=== PATIENT | female | born 1960 | race Caucasian/White ===

== ENCOUNTER 2016-09-30 09:31 | Emergency (ER) | payer BC ==
[~2016-09-30] VITALS: Ht 170.2 cm; Wt 127.2 kg
[~2016-09-30 09:31] MED LIST: AMLO10TA2 PO; ASPI1TAB PO; BYDU1INJ SC; CHIL81CH2 PO; CHLO25TA PO; CINN500C9 PO; CORE6.25 PO; HYDR50TAB PO; LOSA50TA20 PO; METF10004 PO; METO25TAB PO; SPIR25TA2 PO; VERA1TAB11 PO
[2016-09-30] MEDS ORDERED: KETOROLAC 60 MG/2 ML VIAL (J1885) IM ONE (11:00)
[2016-09-30] MEDS ORDERED: methylPREDNISolone INJ 125 MG/2 ML VIAL (J2930) IM ONE (11:00)
[2016-09-30 11:40] VITALS: BP 189/79
[2016-09-30] MEDS ORDERED: ULTR50TA8 PO (11:40)
== END 2016-09-30 11:46 | disposition home or self-care (01) ==
LOC: M ED 09:31
DX: M54.32 Sciatica, left side (principal); I25.10 Atherosclerotic heart disease of native coronary artery without angina pectoris; E11.9 Type 2 diabetes mellitus without complications; I10 Essential (primary) hypertension
CPT/HCPCS: 96372; 99282; J1885; J2930

== ENCOUNTER → 2016-12-09 | Outpatient (REF) | payer BC ==
[~2016-12-09] MED LIST changes: +ULTR50TA8 PO
[2016-12-09 16:26] LABS: ALBUMIN 3.1 GM/DL (3.2-5.2); ALBUMIN/GLOBULIN RATIO 0.79 (1.00-1.93); BILIRUBIN,TOTAL 0.3 MG/DL (0.2-1.0); CALCIUM LEVEL 8.5 MG/DL (8.5-10.1); CREATININE FOR GFR 1.53 MG/DL (0.55-1.02); GLOMERULAR FILTRATION RATE 37.7 (>51); POTASSIUM SERUM 4.2 MEQ/L (3.5-5.1)
== END ==
LOC: M SFHCLACO 08:05
PROVIDERS: ATTEND Physician Assistant
DX: E11.65 Type 2 diabetes mellitus with hyperglycemia (principal); I10 Essential (primary) hypertension; Z68.41 Body mass index [BMI] 40.0-44.9, adult; E78.1 Pure hyperglyceridemia

== ENCOUNTER 2017-02-06 07:37 | Inpatient (IN) | payer BC ==
[2017-02-06] VITALS (7 sets, daily range): BP systolic 116–135; BP diastolic 71–86
[~2017-02-06] VITALS: Ht 170.2 cm; Wt 131.8 kg
[2017-02-06] MEDS ORDERED: NS 1,000 ML IV ONE (08:15)
[2017-02-06 08:35] LABS: BASO # 0.1 10^3/uL (0.0-0.2); BASO % 0.7 % (0.0-1.0); EOS # 0.2 10^3/uL (0.0-0.50); EOS % 1.3 % (0.0-3.0); IMMATURE GRANULOCYTE % 0.8 % (0-0); LYMPH # 1.5 10^3/uL (1.5-4.5); LYMPH % 12.2 % (24.0-44.0); MEAN CORPUSCULAR HEMOGLOBIN 28.8 pg (27.0-33.0); MEAN CORPUSCULAR HGB CONC 33.9 g/dl (32.0-36.5); MEAN CORPUSCULAR VOLUME 84.9 fl (80.0-96.0); MONO # 0.4 10^3/uL (0.0-0.8); MONO % 3.5 % (0.0-5.0); NEUTROPHILS # 9.7 10^3/uL (1.8-7.7); NEUTROPHILS % 81.5 % (36.0-66.0); PLATELET COUNT, AUTOMATED 300 10^3/uL (150-450); RED CELL DISTRIBUTION WIDTH 12.7 % (11.5-14.5); WHITE BLOOD COUNT 11.9 10^3/uL (4.0-10.0)
[2017-02-06] MEDS ORDERED: MORPHINE 4 MG/ML 1ML SYRINGE IV ONE ×2 (08:45→11:15)
[2017-02-06] MEDS ORDERED: ONDANSETRON 4MG/2ML VIAL (J2405) IV ONE (08:45)
[2017-02-06 08:55] LABS: INR 0.93
[2017-02-06] MEDS: LACTOBACILLUS ACIDOPHILUS CAP (BACID) PO SCH ×2 (09:00→20:21)
[2017-02-06] MEDS ORDERED: PRED20TA PO (09:02)
[2017-02-06] MEDS ORDERED: JANU100T PO (09:02)
[2017-02-06] MEDS ORDERED: ONDA4TAB6 PO (09:02)
[2017-02-06] MEDS ORDERED: TRAM50TA2 PO (09:02)
[2017-02-06] MEDS ORDERED: LOSA50TA20 PO (09:02)
[2017-02-06] MEDS ORDERED: CYCL10TA PO (09:02)
[2017-02-06 09:03] LABS: ALBUMIN 3.2 GM/DL (3.2-5.2); ALBUMIN/GLOBULIN RATIO 0.7 (1.00-1.93); BILIRUBIN,DIRECT 0.1 MG/DL (0.0-0.2); BILIRUBIN,TOTAL 0.4 MG/DL (0.2-1.0); CALCIUM LEVEL 9.7 MG/DL (8.5-10.1); CREATININE FOR GFR 1.79 MG/DL (0.55-1.02); GLOMERULAR FILTRATION RATE 31.4 (>51); POTASSIUM SERUM 4.8 MEQ/L (3.5-5.1); TOTAL PROTEIN 7.8 GM/DL (6.4-8.2)
[2017-02-06] MEDS ORDERED: HumuLIN R (REGULAR) INSULIN (NovoLIN R) **100U/ML** PER UNIT SC STA (09:06)
[2017-02-06] MEDS ORDERED: KETOROLAC 30 MG/ML VIAL (J1885) IV ONE (10:30)
[2017-02-06] MEDS ORDERED: NS 1,000 ML IV SCH (10:40)
[2017-02-06] MEDS ORDERED: NORCO, ANEXSIA 5/325MG TABLET (HYDROcodone/ACETAMINOPHEN) PO PRN (10:45)
[2017-02-06] MEDS ORDERED: GLUCOSE 4 GM CHEW TABLET PO PRN ×2 (10:45→17:15)
[2017-02-06] MEDS ORDERED: LEVEMIR (INSULIN DETEMIR) 1 UNITS/0.01ML SC ONE ×2 (10:45→21:00)
[2017-02-06] MEDS ORDERED: ONDANSETRON 4MG/2ML VIAL (J2405) IV PRN ×2 (10:45→16:30)
[2017-02-06] MEDS ORDERED: DEXTROSE 50% 50 ML SYRINGE IV PRN ×2 (10:45→17:15)
[2017-02-06] MEDS ORDERED: GLUCAGON FOR INJ 1 MG VIAL (J1610) SC PRN ×2 (10:45→17:15)
[2017-02-06] MEDS ORDERED: MORPHINE 4 MG/ML 1ML SYRINGE IV PRN (11:00)
[2017-02-06] MEDS ORDERED: cloNIDine 0.2 MG TAB PO ONE (11:00)
[2017-02-06] MEDS ORDERED: VERA24TASA PO (11:12)
[2017-02-06] MEDS ORDERED: hydrALAZINE INJ 20 MG/ML VIAL IV STA (11:14)
--- NOTE | 2017-02-06 11:21 | REP ---
CT ABDOMEN AND PELVIS WITHOUT IV CONTRAST: CT abdomen and pelvis performed without oral or IV contrast, with sagittal and coronal reconstruction images performed. Visualized lung bases demonstrate no evidence of acute infiltrate. The liver demonstrates diffuse low density likely indicating diffuse fatty infiltration. Patient has had a prior cholecystectomy. There is no evidence of significant biliary dilatation. The spleen, adrenals, pancreas, and right kidney are grossly unremarkable. The left kidney demonstrates moderate hydronephrosis. This is caused by a 3 mm calculus in the mid left ureter at the L5-S1 disc level. Two subcentimeter intrarenal calculi are seen in the left renal collecting system. There is no abdominal aortic aneurysm. There is no adenopathy. There is no free air or free fluid. There is no bowel wall thickening. There is no evidence of appendicitis. There is scattered diverticula of the colon without acute diverticulitis. There is no pelvic mass. No bladder calculus is seen. There are degenerative changes of the spine. IMPRESSION: Moderate left hydronephrosis is caused by 3 mm calculus in the mid left ureter at the L5-S1 disc level. There are also two intrarenal calculi in the lower pole of the left kidney. Signed by Gabino Sawyer MD 02/06/2017 05:35 P
--- NOTE | 2017-02-06 11:34 | ECGEPIP ---
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
[2017-02-06] MEDS: **hydrALAZINE** 10 MG TAB PO SCH ×3 (11:39→20:00)
[2017-02-06] MEDS: HumaLOG INSULIN (NovoLOG) PER UNIT SC SCH ×2 (12:00→16:15)
[2017-02-06] MEDS: CIPROFLOXACIN 200 MG in APPROPRIATE DILUENT 1 EA IV SCH (12:56)
[2017-02-06] MEDS ORDERED: CONRAY-60 60% 50ML VIAL (Q9961) As Ordered ONE (12:59)
--- NOTE | 2017-02-06 13:34 | REP ---
CHEST, PORTABLE, SINGLE VIEW: There is no evidence of acute infiltrate. No pleural effusion is seen. The heart is normal in size. The mediastinal silhouette is unremarkable. The visualized osseous structures are intact. IMPRESSION: No acute pulmonary disease. Signed by Gabino Sawyer MD 02/06/2017 05:37 P
--- NOTE | 2017-02-06 13:44 | SMCUROLCON ---
Urology Consultation General Date of Consultation 02/06/17 Reason For Consultation This patient is seen for Hydronephrosis Left. History of Present Illness The patient is a [56]-year-old [female] with a past medical history for left ureter stone; left HUN; ARF on CRF; DM. NPO. Cystoscopy, left RPG, JJ. Full consultation dictated. Cipro. Medications Current Medications Current Medications Acetaminophen (Tylenol Tab) 650 mg Q4HP PRN PO MILD PAIN OR FEVER; Start 02/06 at 10:45; Stop 03/08/17 at 10:44 Acetaminophen/ Hydrocodone Bitart ([place], [place]nexsia 5/325) 1 tab Q4HP PRN PO MODERATE PAIN (PS 5-7); Start 02/06/17 at 10:45; Stop 02/13/17 at 10:44 Ciprofloxacin 200 mg/IV Miscellaneous Supplies 100 ml @ 100 mls/hr Q12H IV Last administered on 02/06/17 12:56; Start 02/06/17 at 12:00; Stop 02/13/17 at 11:59 Dextrose (Dextrose 50%) 25 ml ASDIRECTED PRN IV SEE LABEL COMMENTS; Start at 10:45; Stop 03/08/17 at 10:44 Glucagon (Glucagon) 1 mg ASDIRECTED PRN SC SEE LABEL COMMENTS; Start 02/06/17 at 10:45; Stop 03/08/17 at 10:44 Glucose (Glucose) 16 GM ASDIRECTED PRN PO SEE LABEL COMMENTS; Start 02/06/17 at 10:45; Stop 03/08/17 at 10:44 Home Med (Med Rec Complete!) ASDIRECTED XX ; Start 02/06/17 at 11:15; Stop at 11:27; Status DC Hydralazine HCl (Apresoline) 5 mg STAT STAT IV Last administered on 11:38; Start 02/06/17 at 11:14; Stop 02/06/17 at 11:28; Status DC Hydralazine HCl (Apresoline) 10 mg Q4H PO Last administered on 02/06/17 11:39 ; Start 02/06/17 at 12:00; Stop 03/08/17 at 11:59 Insulin Human Lispro (HumaLOG INSULIN) SEE PROTOCOL TABLE Q6H SC Last administered on 02/06/17 12:00; Start 02/06/17 at 12:00; Stop 03/08/17 at 11 :59 Insulin Human Regular (HumuLIN R INSULIN) 6 units STAT STAT SC Last administered on 02/06/17 09:06; Start 02/06/17 at 09:06; Stop 02/06/17 at 09 :07; Status DC Lactobacillus Acidophilus (Bacid) 1 ea BID PO ; Start 02/06/17 at 09:00; Stop 03/08/17 at 08:59 Morphine Sulfate (Morphine Sulfate Inj) 4 mg Q4HP PRN IV SEVERE PAIN; Start at 11:00; Stop 02/13/17 at 10:59 Ondansetron HCl (ZOFRAN INJection) 4 mg Q6HP PRN IV NAUSEA OR VOMITING; Start 02/06/17 at 10:45; Stop 03/08/17 at 10:44 Sodium Chloride 1,000 ml @ 100 mls/hr Q10H IV Last administered on 02/06/17 11:19; Start 02/06/17 at 10:40; Stop 02/07/17 at 06:39 Verapamil HCl (Isoptin-Sr, Calan Sr) 240 mg QHS PO ; Start 02/06/17 at 21:00; Stop 03/08/17 at 20:59 Allergies Allergies: Coded Allergies: Lisinopril (Verified Allergy, Severe, angioedema, 11/29/14) Bee Venom (Verified Allergy, Unknown, 02/06/17) Vital Signs/I&O Vital Signs Date Time Temp Pulse Resp B/P (MAP) Pulse Ox O2 Delivery O2 Flow Rate FiO2 02/06/17 12:56 97.5 78 18 95 Room Air 02/06/17 12:51 126/60 (82) I&O- Last 24 Hours up to 6 AM 02/07/17 05:59 Intake Total 1000 ml Balance 1000 ml Laboratory Data 24H Labs Laboratory Tests 2 02/06/17 08:23: Prothrombin Time 12.6, Prothromb Time International Ratio 0.93, Urine Appearance HAZY, Urine Color YELLOW, Urine pH 5.0, Urine Specific [place] 1.025 , Urine Protein NEGATIVE, Urine Glucose (UA) 3+H, Urine Ketones TRACEH, Urine Urobilinogen 0.2, Urine Bilirubin NEGATIVE, Urine Leukocyte Esterase NEGATIVE, Urine Blood 2+H, Urine Nitrite NEGATIVE, Urine WBC (Auto) 1, Urine RBC (Auto) 5H , Urine Hyaline Casts (Auto) 0, Urine Bacteria (Auto) 1+H, Urine Squamous Epithelial Cells 2, Urine Sperm (Auto) , Anion Gap 11, Glomerular Filtration Rate 31.4L, Calcium Level 9.7, Aspartate Amino Transf (AST/SGOT) 19, Alanine Aminotransferase (ALT/SGPT) 43, Alkaline Phosphatase 90, Total Bilirubin 0.4, Direct Bilirubin 0.1, Total Protein 7.8, Albumin 3.2, Albumin/Globulin Ratio 0.70L, Lipase 161 02/06/17 08:24: Urine Appearance CLEAR, Urine Color YELLOW, Urine pH 5.0, Urine Specific [place] 1.024, Urine Protein NEGATIVE, Urine Glucose (UA) 3+H, Urine Ketones TRACEH, Urine Urobilinogen 0.2, Urine Bilirubin NEGATIVE, Urine Leukocyte Esterase NEGATIVE, Urine Blood 2+H, Urine Nitrite NEGATIVE, Urine WBC (Auto) 2, Urine RBC (Auto) 7H, Urine Hyaline Casts (Auto) 0, Urine Bacteria (Auto) 1+H, Urine Squamous Epithelial Cells 1, Urine Sperm (Auto) , Immature Granulocyte % ( Auto) 0.8H, White Blood Count 11.9H, Red Blood Count 4.58, Hemoglobin 13.2, Hematocrit 38.9, Mean Corpuscular Volume 84.9, Mean Corpuscular Hemoglobin 28.8 , Mean Corpuscular Hemoglobin Concent 33.9, Red Cell Distribution Width 12.7, Platelet Count 300, Neutrophils (%) (Auto) 81.5H, Lymphocytes (%) (Auto) 12.2L, Monocytes (%) (Auto) 3.5, Eosinophils (%) (Auto) 1.3, Basophils (%) (Auto) 0.7, Neutrophils # (Auto) 9.7H, Lymphocytes # (Auto) 1.5, Monocytes # (Auto) 0.4, Eosinophils # (Auto) 0.2, Basophils # (Auto) 0.1, Immature Granulocyte # (Auto) 0.1H, Nucleated Red Blood Cells % (auto) 0.0, Urine Mucus (Auto) SMALL, Lactic Acid Level 4.6*H 02/06/17 11:00: Bedside Glucose (Misc Panel) 377H 02/06/17 12:09: Bedside Glucose (Misc Panel) 371H 02/06/17 12:31: Lactic Acid Followup at 4 Hours 3.4*H CBC/BMP Laboratory Tests 02/06/17 08:23 02/06/17 08:24 Red Blood Count 4.58, Mean Corpuscular Volume 84.9, Mean Corpuscular Hemoglobin 28.8, Mean Corpuscular Hemoglobin Concent 33.9, Red Cell Distribution Width 12.7 , Neutrophils (%) (Auto) 81.5 H, Lymphocytes (%) (Auto) 12.2 L, Monocytes (%) ( Auto) 3.5, Eosinophils (%) (Auto) 1.3, Basophils (%) (Auto) 0.7, Neutrophils # ( Auto) 9.7 H, Lymphocytes # (Auto) 1.5, Monocytes # (Auto) 0.4, Eosinophils # ( Auto) 0.2, Basophils # (Auto) 0.1 Microbiology Microbiology 02/06/17 Urine Culture, Received Pending ELISEO BERRY MD Feb 06, 2017 13:44
--- NOTE | 2017-02-06 14:22 | HPE ---
DATE OF ADMISSION: 02/06/2017 PRIMARY CARE PROVIDER: ROGELIO Bonilla UROLOGIST: Dr. Michael Ware CHIEF COMPLAINT: Left flank pain, feeling cold at home. HISTORY OF PRESENT ILLNESS: This is a 56-year-old female with a history of hypertension, diabetes, obstructive sleep apnea, multinodular goiter, multiple kidney stones, status post lithotripsy, supraventricular tachycardia (SVT), obstructive sleep apnea, pulmonary hypertension secondary to SAMANTHA with allergies to LISINOPRIL causing dyspnea. Presented to the emergency room with acute onset at 3:00 a.m. of left flank pain, described as sharp, no radiation, accompanied with some dysuria, urgency, and frequency, no fever documented but feeling cold and some chills. Yesterday, the patient felt that this was more of a gas-like pain, since she has had Thanksgiving turkey dinner, but that at 3:00 a.m. she had intractable nausea, prompting her to present to the emergency room due to vomiting, persistent pain, dysuria. She was found to have left hydronephrosis due to a kidney stone, systolic pressure was 190 on admission. Given IV morphine with improvement to 173. The patient was afebrile. White count of 11.9. The hospitalist service was asked to admit for left hydronephrosis secondary to obstructive kidney stone. Creatinine slightly elevated at 1.79 from baseline of 1.5. The patient was found to have uncontrolled type 2 diabetes with glucose of 420 as well, lactic acid of 4.6. PAST MEDICAL HISTORY: 1. Diabetes. 2. Hypertension. 3. Kidney stones. 4. Morbid obesity, Body Mass Index (BMI) of 45.5. 5. Pulmonary hypertension secondary to obstructive sleep apnea. 6. Multinodular goiter. 7. Metabolic syndrome. 8. SVT. 9. SAMANTHA. 10. Multiple kidney stones, status post lithotripsy. ALLERGIES: BEES, LISINOPRIL. HOME MEDICATIONS: - Coreg 6.25 mg twice a day - losartan 50 daily - verapamil 240 mg at night - chlorthalidone 25 mg in the morning - spironolactone 25 mg daily - aspirin 81 mg daily - metformin 1 gram twice a day No recreational drug use, alcohol or tobacco use. FAMILY HISTORY: Mother is 73 with type 2 diabetes. Father with prostate cancer, age 77. REVIEW OF SYSTEMS: 12-point system negative aside from positive findings in history of present illness. PHYSICAL EXAMINATION: Temperature 96.9, pulse 80, respiratory rate 18, blood pressure 173/73, on admission 193/89, 94% on room air. GENERAL: Awake, alert, oriented times three. Answering questions appropriately. Morbidly obese. No respiratory distress, cyanosis, pallor, icterus, or jaundice. Pupils are round, reactive. Extraocular muscles are intact. Normocephalic, atraumatic. Speaks in full sentences. No nasal flaring. No jugular venous distention (JVD), thyromegaly or cervical lymphadenopathy. LUNGS: Clear to auscultation. No wheezing, rales or rhonchi. HEART: S1, S2. Sinus rhythm. ABDOMEN: Soft, obese. Positive bowel sounds times four quadrants. Left flank with costovertebral angle tenderness. No rebound, guarding. No hepatosplenomegaly. EXTREMITIES: Chronic pitting edema with venous stasis ulcers in left lower extremity. LABORATORY DATA: White count 11.9, hemoglobin 13, hematocrit 38, platelet count 300. Sodium 134, potassium 4.9, chloride 101, bicarbonate 22, BUN 29, creatinine 1.7, glucose 420, lactic acid 4.6, calcium 9.7, total bilirubin 0.4, direct bilirubin 0.1, AST 19, ALT 43, alkaline phosphatase of 90, total protein is 7.8. CT of the abdomen and pelvis, left hydronephrosis, obstructing kidney stone. Lactic acid 4.6. EKG with sinus rhythm, ventricular rate of 82. No acute ST-T changes. ASSESSMENT AND PLAN: 56-year-old female with a history of diabetes, hypertension, hyperlipidemia, obstructive sleep apnea, pulmonary hypertension, metabolic syndrome, multinodular goiter, SVT, recurrent kidney stones, status post lithotripsy, presented to the emergency room with acute onset of left sided flank pain, dysuria, urgency, frequency without fever or chills, found to have slightly elevated white count, abnormal urinalysis. CT showing left hydronephrosis with kidney stone. CURRENT ISSUES: 1. Preoperative medical clearance. The patient is exhibiting no acute cardiac ischemic symptoms. EKG is unremarkable. The patient may proceed to cystoscopy and possible lithotripsy, stone extraction or stent placement. The patient's blood pressure will be optimized with hydralazine and clonidine for now. Since the patient's heart rate is slow, cannot resume the patient's Coreg. Due to acute on chronic renal failure, we are unable to use KAVITHA inhibitors and ARBs and diuretics. 2. Left hydronephrosis. Dr. Ware, urology, has been consulted for cystoscopy with possible lithotripsy, stone extraction, or stent placement. Nothing by mouth status with IV fluids. 3. Uncontrolled type 2 diabetes. The patient had been given Levemir. Continue with sliding scale insulin with coverage. Fingersticks every 4 hours. Hypoglycemic protocol. Resume home dose of insulin. The patient's metformin will be held due to renal failure with metabolic acidosis. 4. Uncontrolled hypertension due to severe pain. Morphine has been given with as needed Percocet with significant improvement from systolic pressure of 190 to 170. The patient will be given clonidine. Avoid KAVITHA inhibitor and ARB due to renal failure. Cannot use beta blockades due to heart rate of 60 to 70. Therefore, we will use direct vasodilators, hydralazine for now. May resume once creatinine is improved her home medications. 5. Dyslipidemia. Resume medications in the morning. 6. History of multinodular goiter. Check TSH in the morning. 7. History of SVT. Currently sinus rhythm. 8. SAMANTHA. Continue with home CPAP postoperatively. 9. Pulmonary hypertension secondary to severe SAMANTHA, continue with CPAP at night. 10. Morbid obesity, Body Mass Index (BMI) of 45.5, complicating acute issues. 11. Deep vein thrombosis (DVT) prophylaxis. Compression stockings.
[2017-02-06] MEDS ORDERED: fentaNYL 100 MCG/2 ML INJECTION (J3010) As Ordered ONE (15:29)
[2017-02-06] MEDS ORDERED: MIDAZOLAM INJ 2 MG/2 ML VIAL (J2250) As Ordered ONE (15:29)
[2017-02-06] MEDS ORDERED: LIDOCAINE 2% INJ 100 MG/5 ML SDV (FOR ANES.) As Ordered ONE (15:30)
[2017-02-06] MEDS ORDERED: PROPOFOL 200 MG/20 ML VIAL As Ordered ONE (15:30)
[2017-02-06] MEDS ORDERED: CIPROFLOXACIN 200 MG in APPROPRIATE DILUENT 1 EA IV ONE (15:45)
--- NOTE | 2017-02-06 15:51 | CR ---
DATE OF CONSULTATION: 02/06/2017 This 56-year-old female was evaluated and consultation is requested by Dr. Spann on 02/06/2017 for left renal colic. She had an acute onset of left renal colic at 0300 hours on 02/06/2017. This was subsequently followed by nausea and vomiting. She is a recurrent stone former (spontaneous passage, shockwave lithotripsy). Prior to her presentation, there is no history of voiding symptoms, gross hematuria, urinary tract infection, stone passage or constitutional symptoms. PAST MEDICAL HISTORY: Significant for: 1. Diabetes mellitus. 2. Hypertension. 3. Pulmonary hypertension. 4. Goiter. 5. Hypercholesterolemia. 6. Recurrent nephrolithiasis. 7. Supraventricular tachycardia. 8. Laparoscopic cholecystectomy. 9. Morbid obesity. REVIEW OF SYSTEMS: Negative for headaches, epilepsy, CVA, glaucoma, peptic ulcer disease, or blood borne diseases. CURRENT MEDICATIONS: Include: - verapamil - insulin - hydralazine - clonidine She is allergic to LISINOPRIL. SOCIAL HISTORY: She is and has one child. She is a nonsmoker. Does not consume alcohol. FAMILY HISTORY: Significant for chronic obstructive pulmonary disease (COPD) and prostate adenocarcinoma on the paternal side. Diabetes mellitus on the maternal side. Deep vein thrombosis (DVT) in siblings. PHYSICAL EXAMINATION: GENERAL: Revealed a comfortable individual. Her heart rate was 78, respiratory rate 18, blood pressure 141/67, temperature 97.5 degrees Fahrenheit. The patient's head and neck failed to reveal the presence of lymphadenopathy. Lungs clear to auscultation. Normal heart sounds. Examination of the back and abdomen were benign. She is morbidly obese. Urinalysis (02/06/2017) demonstrated 2+ microhematuria with a pH of 5.0. Nitrates and leukocytes were negative. Serum hematologic and biochemical indices determination (02/06/2017) demonstrated a hemoglobin of 13.2, leukocyte count of 11.9, creatinine of 1.8 (elevated), glucose of [address] and lactate of 4.6. CT of the abdomen and pelvis without intravenous contrast (02/06/2017) demonstrated a 3 mm left mid ureter calculus with proximal hydroureteronephrosis. ASSESSMENT: 1. Left mid ureter calculus. 2. Left hydroureteronephrosis. 3. Acute on chronic renal failure. 4. Poorly controlled diabetes mellitus. 5. Hypertension. 6. Pulmonary hypertension. 7. Goiter. 8. Hypercholesterolemia. 9. Supraventricular tachycardia. 10. Morbid obesity. 11. Recurrent nephrolithiasis. PLAN: The above findings were discussed with the patient, nursing staff and emergentologist. Given the size of the stone, conservative management is appropriate. However, given her acute on chronic renal failure, poorly controlled diabetes mellitus and GFR of 30, urinary diversion is appropriate. Following nothing by mouth status, cystoscopy, left retrograde ureteropyelography and double JJ stent insertion will be performed. Medical optimization to follow. Intravenous Ciprofloxacin 400 mg will be provided perioperatively. Should you require additional information, please do not hesitate to contact me. Thanking you for the confidence of your referral. Sincerely, Michael Ware MD
[2017-02-06] MEDS ORDERED: HumaLOG INSULIN (NovoLOG) PER UNIT As Ordered ONE (16:08)
[2017-02-06] MEDS ORDERED: LR 1,000 ML IV SCH (16:30)
[2017-02-06] MEDS ORDERED: PERCOCET 5MG/325MG TAB PO PRN (16:30)
[2017-02-06] MEDS ORDERED: fentaNYL 100 MCG/2 ML INJECTION (J3010) IV PRN (16:30)
[2017-02-06] MEDS: NS 1,000 ML IV SCH (17:15)
[2017-02-06] MEDS: ACETAMINOPHEN TAB 650MG DOSE (2X325MG) PO PRN (20:21)
[2017-02-06] MEDS: VERAPAMIL 120 MG SR TAB PO SCH (20:23)
[2017-02-07] MEDS: CIPROFLOXACIN 200 MG in APPROPRIATE DILUENT 1 EA IV SCH ×2 (00:54→12:46)
[2017-02-07 01:00] VITALS: BP 120/73
[2017-02-07] MEDS: NS 1,000 ML IV SCH ×3 (03:15→23:15)
[2017-02-07] MEDS: **hydrALAZINE** 10 MG TAB PO SCH ×6 (04:00→20:24)
[2017-02-07 06:00] VITALS: BP 148/83
--- NOTE | 2017-02-07 06:13 | RO ---
DATE OF PROCEDURE: 02/06/2017 PREOPERATIVE DIAGNOSIS: 1. Left mid ureter calculus. 2. Left hydroureteronephrosis. 3. Acute on chronic renal failure. POSTOPERATIVE DIAGNOSIS: 1. Left mid ureter calculus. 2. Left hydroureteronephrosis. 3. Acute on chronic renal failure. PROCEDURE: Cystoscopy. Left retrograde ureteropyelography. 6 [place] JJ-stent insertion. Fluoroscopy. SURGEON: Dr. Michael Ware SECURITY POLICE: ANESTHESIA: Monitored anesthesia care (MAC). COMPLICATIONS: None. ESTIMATED BLOOD LOSS: 0 mL. PROCEDURE: In lithotomy position, the patient was prepped and draped in the usual fashion. Plain fluoroscopy of the upper urinary tract failed to confirm the presence of a radiopaque calculus. A 22-[place] cystoscope was advanced into the urinary bladder under direct vision. A urine specimen for culture and sensitivity was obtained. Gonzalez cystoscopy revealed normal ureteric orifices bilaterally and normal urothelium. There was no evidence of tumor, active bleeding or urolithiasis. A normal bladder neck and urethra were noted. A 5 [place] open ended ureteral catheter was used to intubate the left ureteric orifice. Retrograde ureteropyelography confirmed a normal caliber ureter and mild proximal hydroureteronephrosis. No filling defects were appreciated. Under fluoroscopy, a 0.035 Glidewire was advanced up into the left renal pelvis. The 5 [place] open ended ureteral catheter was removed. A 6 [place] JJ-stent was advanced under fluoroscopy under direct vision. Its position was confirmed. Prior to removal of the instruments, the bladder was drained. At the conclusion of the procedure, sponge and instrument counts were correct. Estimated blood loss for the procedure was 0 mL. In the recovery room, the patient was alert and stable. DISPOSITION: Primary service to resume preoperative orders. Serial creatinines until nadi. Medical optimization. Following hospital discharge, she will followup with urology with a KUB radiograph.
--- NOTE | 2017-02-07 06:36 | REP ---
C-ARM VIEWS DURING LEFT RETROGRADE PYELOGRAM AND URETERAL STENT PLACEMENT: Contrast is injected into the left ureter which partially opacifies the ureter and left pelvicaliceal system. A left ureteral stent is placed with the proximal end coiled in the left renal pelvis and the distal end coiled in the region of the urinary bladder. 22 seconds of fluoroscopy time was utilized for the procedure. Signed by Gabino Sawyer MD 02/07/2017 09:06 A
[2017-02-07 06:48] LABS: BASO # 0.1 10^3/uL (0.0-0.2); BASO % 0.7 % (0.0-1.0); EOS # 0.3 10^3/uL (0.0-0.50); IMMATURE GRANULOCYTE % 0.8 % (0-0); LYMPH # 2.4 10^3/uL (1.5-4.5); LYMPH % 22.9 % (24.0-44.0); MEAN CORPUSCULAR HGB CONC 33.1 g/dl (32.0-36.5); MEAN CORPUSCULAR VOLUME 87.6 fl (80.0-96.0); MONO # 0.6 10^3/uL (0.0-0.8); MONO % 5.9 % (0.0-5.0); NEUTROPHILS # 6.9 10^3/uL (1.8-7.7); NEUTROPHILS % 66.7 % (36.0-66.0); PLATELET COUNT, AUTOMATED 241 10^3/uL (150-450); RED CELL DISTRIBUTION WIDTH 13.1 % (11.5-14.5); WHITE BLOOD COUNT 10.3 10^3/uL (4.0-10.0)
[2017-02-07 06:59] LABS: CALCIUM LEVEL 8.2 MG/DL (8.5-10.1); CREATININE FOR GFR 1.43 MG/DL (0.55-1.02); GLOMERULAR FILTRATION RATE 40.7 (>51); POTASSIUM SERUM 3.9 MEQ/L (3.5-5.1)
[2017-02-07] MEDS: HumaLOG INSULIN (NovoLOG) PER UNIT SC SCH ×3 (08:10→18:08)
[2017-02-07] MEDS: LACTOBACILLUS ACIDOPHILUS CAP (BACID) PO SCH ×2 (08:10→20:24)
[2017-02-07] MEDS: LEVEMIR (INSULIN DETEMIR) 1 UNITS/0.01ML SC SCH ×2 (08:17→20:22)
--- NOTE | 2017-02-07 09:39 | IPNPDOC ---
Assessment/Plan Date Seen The patient was seen on 02/07/17. Patient Summary This is a 56 y/o F admitted for NATHAN due to obstructing left ureteral stone in the setting of a possible UTI, POD1 s/p left ureteral stent placement. The patient feels much better today. Her Cr and lactic acid levels are both improving, but not normal yet. Plan/VTE VTE Prophylaxis Ordered?: Yes VTE Exclusion Mechanical Proph: N/A:VTE Prophy Ordered Plan - no additional urologic intervention needed at this time - continue empiric antibiotics for possible UTI - urology office will contact the patient to arrange f/u to discuss subsequent stone removal Subjective Review oF Systems Chief Complaint The patient is a 56-year-old female admitted with a reason for visit of Hydronephrosis Left. Events since Last Encounter No acute events o/n. Left flank pain much better today. No n/v. No f/c/ns. Objective Physical Examination General Exam: Alert, Cooperative, No Acute Distress ABDOMEN EXAM: Soft Skin Exam: Nl turgor and temperature Neuro Exam: Normal Speech Psych Exam: Mental status NL, Mood NL Vital Signs/I&O Vital Signs Date Time Temp Pulse Resp B/P (MAP) Pulse Ox O2 Delivery O2 Flow Rate FiO2 02/07/17 08:00 148/83 02/07/17 06:00 96.9 72 18 99 Nasal Cannula 2.0 I&O- Last 24 Hours up to 6 AM 02/08/17 06:00 Intake Total 900 ml Balance 900 ml Laboratory Data Labs 24H Laboratory Tests 2 02/06/17 11:00: Bedside Glucose (Misc Panel) 377H 02/06/17 12:09: Bedside Glucose (Misc Panel) 371H 02/06/17 12:31: Lactic Acid Followup at 4 Hours 3.4*H 02/06/17 16:06: Bedside Glucose (Misc Panel) 239H 02/06/17 16:53: Bedside Glucose (Misc Panel) 216H 02/06/17 17:56: Lactic Acid Level 2.6*H 02/06/17 19:39: Bedside Glucose (Misc Panel) 210H 02/06/17 23:29: Lactic Acid Followup at 4 Hours 1.7 02/07/17 06:20: Immature Granulocyte % (Auto) 0.8H, White Blood Count 10.3H, Red Blood Count 3.86L, Hemoglobin 11.2#L, Hematocrit 33.8L, Mean Corpuscular Volume 87.6, Mean Corpuscular Hemoglobin 29.0, Mean Corpuscular Hemoglobin Concent 33.1, Red Cell Distribution Width 13.1, Platelet Count 241, Neutrophils (%) (Auto) 66.7H, Lymphocytes (%) (Auto) 22.9L, Monocytes (%) (Auto) 5.9H, Eosinophils (%) (Auto) 3.0, Basophils (%) (Auto) 0.7, Neutrophils # (Auto) 6.9, Lymphocytes # (Auto) 2.4, Monocytes # (Auto) 0.6, Eosinophils # (Auto) 0.3, Basophils # (Auto) 0.1, Immature Granulocyte # (Auto) 0.1H, Nucleated Red Blood Cells % (auto) 0.0, Anion Gap 9, Glomerular Filtration Rate 40.7L, Blood Urea Nitrogen 32H, Creatinine 1.43H, Sodium Level 137, Potassium Level 3.9, Chloride Level 105, Carbon Dioxide Level 23, Calcium Level 8.2#L CBC/BMP Laboratory Tests 02/07/17 06:20 Red Blood Count 3.86 L, Mean Corpuscular Volume 87.6, Mean Corpuscular Hemoglobin 29.0, Mean Corpuscular Hemoglobin Concent 33.1, Red Cell Distribution Width 13.1, Neutrophils (%) (Auto) 66.7 H, Lymphocytes (%) (Auto) 22.9 L, Monocytes (%) (Auto) 5.9 H, Eosinophils (%) (Auto) 3.0, Basophils (%) ( Auto) 0.7, Neutrophils # (Auto) 6.9, Lymphocytes # (Auto) 2.4, Monocytes # (Auto ) 0.6, Eosinophils # (Auto) 0.3, Basophils # (Auto) 0.1, Calcium Level 8.2 #L FSBS Laboratory Tests Test 02/06/17 11:00 02/06/17 12:09 02/06/17 16:06 02/06/17 16:53 Range/Units Bedside Glucose (Misc Panel) 377 371 239 216 70-105 MG/DL Test 02/06/17 19:39 Range/Units Bedside Glucose (Misc Panel) 210 70-105 MG/DL Microbiology Microbiology 02/06/17 Urine Culture, Received Pending 02/06/17 Urine Culture, Received Pending RAUDEL SALTER MD Feb 07, 2017 09:39
[2017-02-07 10:00] VITALS: BP 150/86
--- NOTE | 2017-02-07 13:52 | IPN ---
DATE OF SERVICE: 02/07/2017 The patient continues to have some hematuria. No fever or chills. Flank pain is improved. Tolerating her diet well. No nausea or vomiting. Temperature 96.9, pulse 72, respiratory rate 18, blood pressure 153/87, 99% on 2 liters nasal cannula. Generally, the patient is awake, alert, oriented times three. Answering questions appropriately. Lungs are clear to auscultation. No wheezing, rales, or rhonchi. Heart: S1, S2. Sinus rhythm. Abdomen: Is soft, nontender, nondistended. Normoactive bowel sounds. Extremities: No cyanosis, clubbing. The patient has chronic edema with venous ulcers. LABORATORY DATA: White count 10.3, hemoglobin 11, hematocrit 33, platelet count 241. Sodium 137, potassium of 3.9, chloride 105, bicarbonate 23, BUN 32, creatinine 1.43, glucose 244, lactic acid of 1.7. Urine culture pending. ASSESSMENT AND PLAN: This is a 56-year-old female with history of recurrent nephrolithiasis status post lithotripsy, history of diabetes, hypertension, hyperlipidemia, obstructive sleep apnea (SAMANTHA), multinodular goiter, supraventricular tachycardia (SVT), kidney stones, pulmonary hypertension secondary to SAMANTHA, presented to the emergency room with left flank pain with no fever documented, white count of 11.9, and acute kidney injury secondary to obstructive kidney stone. CURRENT ISSUES: 1. Obstructive uropathy with left hydronephrosis, status post cystoscopy with left retrograde ureteropyelography and double J stent insertion. The patient is currently on intravenous (IV) antibiotics and intravenous fluids with some improvement in creatinine from 1.79 to 1.43. Appreciate urology's management of the patient's obstructive stone. The patient's white count is decreasing. She has remained afebrile. Lactic acid has normalized. If the patient continues to do well, may be discharged home in the morning. 2. Type 2 diabetes, uncontrolled. The patient had received subcutaneous Levemir 10 twice a day, as well as sliding scale, consistent-carbohydrate diet. Continue with the same. 3. Uncontrolled hypertension, currently improved with hydralazine. The patient had been resumed on verapamil. We have refrained from angiotensin-converting enzyme (KAVITHA) inhibitors and angiotensin receptor blockers (ARBs) due to acute on chronic renal failure. 4. Obstructive sleep apnea. May resume home continuous positive airway pressure (CPAP). 5. Morbid obesity. Body mass index (BMI) 45.5. Complicating acute issues. 6. History of multinodular goiter. Outpatient followup with repeat thyroid function test. 7. Metabolic syndrome, chronic. 8. History of supraventricular tachycardia. Currently stable. 9. Deep vein thrombosis (DVT) prophylaxis with compression stockings. DISPOSITION: Possible discharge in the morning.
[2017-02-07] MEDS: VERAPAMIL 120 MG SR TAB PO SCH (20:24)
[2017-02-07 22:00] VITALS: BP 172/79
[2017-02-08] VITALS (7 sets, daily range): BP systolic 128–188; BP diastolic 66–100
[2017-02-08] MEDS: CIPROFLOXACIN 200 MG in APPROPRIATE DILUENT 1 EA IV SCH (00:21)
[2017-02-08] MEDS: **hydrALAZINE** 10 MG TAB PO SCH ×6 (04:00→20:23)
[2017-02-08] MEDS: ACETAMINOPHEN TAB 650MG DOSE (2X325MG) PO PRN (04:08)
[2017-02-08 07:22] LABS: BASO # 0.1 10^3/uL (0.0-0.2); BASO % 0.9 % (0.0-1.0); EOS # 0.5 10^3/uL (0.0-0.50); EOS % 4.8 % (0.0-3.0); LYMPH # 2.5 10^3/uL (1.5-4.5); LYMPH % 27.2 % (24.0-44.0); MEAN CORPUSCULAR HEMOGLOBIN 28.2 pg (27.0-33.0); MEAN CORPUSCULAR HGB CONC 32.4 g/dl (32.0-36.5); MONO # 0.6 10^3/uL (0.0-0.8); MONO % 6.2 % (0.0-5.0); NEUTROPHILS # 5.6 10^3/uL (1.8-7.7); NEUTROPHILS % 59.9 % (36.0-66.0); PLATELET COUNT, AUTOMATED 269 10^3/uL (150-450); WHITE BLOOD COUNT 9.3 10^3/uL (4.0-10.0)
[2017-02-08 07:42] LABS: CALCIUM LEVEL 8.7 MG/DL (8.5-10.1); CREATININE FOR GFR 1.41 MG/DL (0.55-1.02); GLOMERULAR FILTRATION RATE 41.4 (>51)
[2017-02-08] MEDS: LACTOBACILLUS ACIDOPHILUS CAP (BACID) PO SCH ×2 (08:10→20:18)
[2017-02-08] MEDS: LEVEMIR (INSULIN DETEMIR) 1 UNITS/0.01ML SC SCH ×2 (08:10→20:33)
[2017-02-08] MEDS: HumaLOG INSULIN (NovoLOG) PER UNIT SC SCH ×3 (08:10→17:16)
[2017-02-08] MEDS ORDERED: NS 1,000 ML IV SCH (10:15)
[2017-02-08] MEDS: CIPROFLOXACIN 250 MG TAB PO SCH ×2 (10:31→17:16)
--- NOTE | 2017-02-08 11:28 | IPNPDOC ---
Text Note Date of Service The patient was seen on 02/08/17. NOTE Subjective: Patient is a 56 year old female with a PMHx of HTN, DM2, SVT, Pulmonary HTN, SAMANTHA, Multinodular goiter and Hx of Kidney stones s/p Lithotripsy who presented to the ER with complaints of left flank pain and dysuria. She was found to have pyelonephritis and left sided hydronephrosis from an obstructing kidney stone. She was started on IV antibiotics and had a stent placement on by Urology. Patient was seen and examined at the bedside. Currently she denies any pain, but has noted increased urine output. Objective: Vitals (See below) General: Lying in bed, no acute distress, comfortable, AAOx3 HEENT: NC, AT CVS: RRR, +S1S2 Lungs: Fair air entry b/l, -w/r/r Abdomen: Soft, ND, NT, No flank tenderness Extremities: - Edema, - Calf tenderness Assessment and plan: Left flank pain - likely 2/2 pyelonephritis and left-sided hydronephrosis - s/p stent placement (POD #2) - Clinically has improvement in pain and dysuria - Physical without any flank tenderness - Leukocytosis and lactic acidosis has resolved - CT abdomen / pelvis 02/06: Moderate left hydronephrosis caused by 3 mm calculus in left ureter - Urine culture 02/06: No growth - Continue ciprofloxacin; will change to PO Acute kidney injury on chronic kidney disease - likely 2/2 postobstructive etiology, possibly prerenal etiology - Creatinine baseline of 1.1-1.3, likely - Creatinine on admission of 1.79, has been trending down toward baseline - Will restart IV fluid hydration DM2 - Continue with insulin sliding scale and long-acting insulin HTN - Blood pressure means well-controlled - Continue hydralazine and verapamil - Will continue to hold KAVITHA inhibitor until kidney function resolved to normal SAMANTHA - Allow home CPAP use Morbid obesity - Complicating medical care History of multinodular goiter - Outpatient follow-up with repeat thyroid function testing as an outpatient Metabolic syndrome - Chronic History of SVT - Continue with verapamil Pulmonary HTN DVT prophylaxis - Continue with the compression devices Disposition: - Currently kidney function to return to baseline - Antibiotics transitioned to oral form today VS,Fishbone, I+O VS, Fishbone, I+O Laboratory Tests 02/08/17 07:07 Red Blood Count 4.22, Mean Corpuscular Volume 87.0, Mean Corpuscular Hemoglobin 28.2, Mean Corpuscular Hemoglobin Concent 32.4, Red Cell Distribution Width 13.0 , Neutrophils (%) (Auto) 59.9, Lymphocytes (%) (Auto) 27.2, Monocytes (%) (Auto ) 6.2 H, Eosinophils (%) (Auto) 4.8 H, Basophils (%) (Auto) 0.9, Neutrophils # ( Auto) 5.6, Lymphocytes # (Auto) 2.5, Monocytes # (Auto) 0.6, Eosinophils # (Auto ) 0.5, Basophils # (Auto) 0.1, Calcium Level 8.7 Vital Signs Date Time Temp Pulse Resp B/P (MAP) Pulse Ox O2 Delivery O2 Flow Rate FiO2 02/08/17 08:09 139/78 02/08/17 07:30 Room Air 02/08/17 06:00 97.8 75 18 96 02/07/17 09:52 2.0 I&O- Last 24 Hours up to 6 AM 02/09/17 06:00 Intake Total 100 ml Balance 100 ml RICHARD DUFF MD Feb 08, 2017 11:28
[2017-02-08] MEDS: VERAPAMIL 120 MG SR TAB PO SCH (20:22)
[2017-02-08] MEDS ORDERED: **hydrALAZINE** 10 MG TAB PO ONE (22:00)
[2017-02-09] MEDS: **hydrALAZINE** 10 MG TAB PO SCH ×3 (00:13→08:24)
[2017-02-09] MEDS: ACETAMINOPHEN TAB 650MG DOSE (2X325MG) PO PRN (05:40)
[2017-02-09] MEDS: CIPROFLOXACIN 250 MG TAB PO SCH (05:41)
[2017-02-09 06:00] VITALS: BP 148/68
[2017-02-09 06:47] LABS: BASO # 0.1 10^3/uL (0.0-0.2); BASO % 0.6 % (0.0-1.0); EOS # 0.5 10^3/uL (0.0-0.50); IMMATURE GRANULOCYTE % 1.1 % (0-0); LYMPH # 2.3 10^3/uL (1.5-4.5); LYMPH % 25.7 % (24.0-44.0); MEAN CORPUSCULAR HEMOGLOBIN 27.7 pg (27.0-33.0); MEAN CORPUSCULAR HGB CONC 32.7 g/dl (32.0-36.5); MEAN CORPUSCULAR VOLUME 84.5 fl (80.0-96.0); MONO # 0.5 10^3/uL (0.0-0.8); MONO % 5.8 % (0.0-5.0); NEUTROPHILS # 5.5 10^3/uL (1.8-7.7); NEUTROPHILS % 61.8 % (36.0-66.0); PLATELET COUNT, AUTOMATED 245 10^3/uL (150-450); RED CELL DISTRIBUTION WIDTH 12.8 % (11.5-14.5)
[2017-02-09 07:05] LABS: CALCIUM LEVEL 8.7 MG/DL (8.5-10.1); CREATININE FOR GFR 1.07 MG/DL (0.55-1.02); GLOMERULAR FILTRATION RATE 56.9 (>51); POTASSIUM SERUM 4.1 MEQ/L (3.5-5.1)
[2017-02-09] MEDS ORDERED: CIPR-250 PO ×2 (07:43→08:02)
[2017-02-09 08:24] VITALS: BP 178/98
[2017-02-09] MEDS: LACTOBACILLUS ACIDOPHILUS CAP (BACID) PO SCH (08:24)
[2017-02-09] MEDS: LEVEMIR (INSULIN DETEMIR) 1 UNITS/0.01ML SC SCH (08:24)
[2017-02-09] MEDS: HumaLOG INSULIN (NovoLOG) PER UNIT SC SCH (08:24)
--- NOTE | 2017-02-09 15:19 | DSES ---
DATE OF ADMISSION: 02/06/2017 DATE OF DISCHARGE: 02/09/2017 ATTENDING PHYSICIANS: Dr. Sandra Amaro, Dr. Jamia Adam PRIMARY CARE PHYSICIAN: ROGELIO Bonilla REFERRING PHYSICIAN: None. CONSULTING PHYSICIAN: Dr. Kaiden Singh CONDITION ON DISCHARGE: Stable. FINAL DIAGNOSES: Left-sided hydronephrosis/pyelonephritis/urinary tract infection. PROCEDURES: On February 06 patient had cystoscopy with left retrograde ureteral pyelogram done by Dr. Michael Ware. HISTORY OF PRESENT ILLNESS: Patient is a 56-year-old female with a past medical history of hypertension, diabetes, type 2, supraventricular tachycardia (SVT), pulmonary hypertension, obstructive sleep apnea, multinodular goiter, and history of kidney stones status post lithotripsy who presented to the emergency room with complaints of left flank pain and dysuria. She was found to have pyelonephritis and left-sided hydronephrosis from an obstructing stone. She was started on intravenous (IV) antibiotics and had a stent placement on February 06 by urology. HOSPITAL COURSE: 1. Left flank pain, likely secondary to pyelonephritis and left-sided hydronephrosis status post stent placement, postoperative day #3. Clinically patient has improved in her pain and dysuria. Physical without any flank tenderness. Leukocytosis and lactic acidosis have resolved. CT abdomen and pelvis on February 06 revealed moderate left-sided hydronephrosis caused by a 3 mm calculus in the left ureter. Urine culture on February 06 revealed no growth. Patient was put on ciprofloxacin and has been changed to oral ciprofloxacin. She will continue these medications as an outpatient until she follows up with urology. 2. Acute kidney injury on chronic kidney disease, likely secondary to postobstructive etiology, possibly pre-renal etiology. Creatinine baseline of 1.1 to 1.3. Creatinine on admission was 1.79 and has been trended down and is now within baseline. 3. Diabetes mellitus, type 2. Continue with insulin sliding scale and long-acting insulin. 4. Hypertension. Blood pressure is well controlled. Continue with hydralazine and verapamil while inpatient. Upon discharge patient has been restarted on her home regimen. 5. Obstructive sleep apnea. Continue with home continuous positive airway pressure (CPAP) use. 6. Morbid obesity, complicating medical care. 7. History of multinodular goiter. Outpatient followup with repeat thyroid function testing as an outpatient was recommended. 8. Metabolic syndrome, is chronic. 9. History of supraventricular tachycardia (SVT), Continue with verapamil. 10. Pulmonary hypertension. 11. Deep vein thrombosis (DVT) prophylaxis. Continue with compression devices. DISCHARGE MEDICATIONS: Patient is being discharged home with the following medication list: - aspirin 81 mg by mouth daily - carvedilol 6.25 mg by mouth twice a day - chlorthalidone 25 mg by mouth daily - losartan 50 mg by mouth at bedtime - metformin 1000 mg by mouth twice a day - Zofran 4 mg by mouth four times a day - sitagliptin 100 mg by mouth daily - spironolactone 25 mg by mouth daily - tramadol 50 mg by mouth every 6 hours as needed pain - verapamil 240 mg by mouth at bedtime New medications to be provided include ciprofloxacin 250 mg by mouth twice a day. DISCHARGE INSTRUCTIONS: Patient has been advised to followup with her primary care provider, Nelsy Cisse, as well as urology, Dr. Richey, within the next 7 days. She has been advised to remain compliant with treatment plan and medications and return to the emergency room if she experiences any problems. TIME SPENT ON DISCHARGE: Greater than 35 minutes.
== END 2017-02-09 11:30 | disposition home or self-care (01) | DRG 465 ==
LOC: EDBD 07:37 → M ED 07:37 → M ED INP 10:40 → M MS5PR 14:09
PROVIDERS: ADMIT General Practice; ATTEND Internal Medicine
PROC: 0T774DZ Dilation of Left Ureter with Intraluminal Device, Percutaneous Endoscopic Approach (ICD-10-PCS; principal; 2017-02-06 12:49)
DX: N13.2 Hydronephrosis with renal and ureteral calculous obstruction (principal); N17.9 Acute kidney failure, unspecified; E88.81 Metabolic syndrome and other insulin resistance; I27.20 Pulmonary hypertension, unspecified; E11.65 Type 2 diabetes mellitus with hyperglycemia; L97.929 Non-pressure chronic ulcer of unspecified part of left lower leg with unspecified severity; E66.01 Morbid (severe) obesity due to excess calories; Z68.42 Body mass index [BMI] 45.0-49.9, adult; I87.2 Venous insufficiency (chronic) (peripheral); E11.622 Type 2 diabetes mellitus with other skin ulcer; I12.9 Hypertensive chronic kidney disease with stage 1 through stage 4 chronic kidney disease, or unspecified chronic kidney disease; N18.9 Chronic kidney disease, unspecified; E78.5 Hyperlipidemia, unspecified; G47.33 Obstructive sleep apnea (adult) (pediatric); E04.2 Nontoxic multinodular goiter; Z88.8 Allergy status to other drugs, medicaments and biological substances; Z79.84 Long term (current) use of oral hypoglycemic drugs; Z79.899 Other long term (current) drug therapy

== ENCOUNTER → 2017-02-15 | Outpatient (REF) | payer BC ==
[~2017-02-15] MED LIST changes: +CIPR-250 PO; +CYCL10TA PO; +JANU100T PO; +ONDA4TAB6 PO; +PRED20TA PO; +TRAM50TA2 PO; +VERA24TASA PO
[2017-02-15 15:06] LABS: ALBUMIN 3.3 GM/DL (3.2-5.2); ALBUMIN/GLOBULIN RATIO 0.75 (1.00-1.93); BILIRUBIN,TOTAL 0.4 MG/DL (0.2-1.0); CALCIUM LEVEL 9.2 MG/DL (8.5-10.1); CREATININE FOR GFR 1.69 MG/DL (0.55-1.02); GLOMERULAR FILTRATION RATE 33.6 (>51); POTASSIUM SERUM 4.3 MEQ/L (3.5-5.1); TOTAL PROTEIN 7.7 GM/DL (6.4-8.2)
== END ==
LOC: M SFHCLACO 09:42
PROVIDERS: ATTEND Physician Assistant
DX: I10 Essential (primary) hypertension (principal); E11.65 Type 2 diabetes mellitus with hyperglycemia; N20.0 Calculus of kidney

== ENCOUNTER → 2017-02-17 | Outpatient (REF) | payer BC | LOC: M SMT 17:18 | PROVIDERS: ATTEND Nurse Practitioner Family | DX: N20.0 Calculus of kidney (principal); Z01.818 Encounter for other preprocedural examination ==

== ENCOUNTER 2017-02-18 09:06 | Day surgery (SDC) | payer BC ==
[~2017-02-18] VITALS: Ht 170.2 cm; Wt 137.4 kg
[~2017-02-18 09:06] MED LIST changes: +CEFAZOLIN SOD 1 GM in APPROPRIATE DILUENT 1 EA IV ONE
[2017-02-18] MEDS ORDERED: MIDAZOLAM INJ 2 MG/2 ML VIAL (J2250) As Ordered ONE (12:58)
[2017-02-18] MEDS ORDERED: LR 1,000 ML IV ONE (13:30)
[2017-02-18] MEDS ORDERED: CONRAY-60 60% 50ML VIAL (Q9961) As Ordered ONE (13:39)
[2017-02-18] MEDS ORDERED: fentaNYL 250 MCG/5 ML INJECTION (J3010) As Ordered ONE (13:40)
[2017-02-18] MEDS ORDERED: PROPOFOL 200 MG/20 ML VIAL As Ordered ONE ×2 (14:20→14:21)
[2017-02-18] MEDS ORDERED: SUCCINYLCHOLINE 100 MG/5 ML SYRINGE (J0330) As Ordered ONE (14:21)
[2017-02-18] MEDS ORDERED: ONDANSETRON 4MG/2ML VIAL (J2405) As Ordered ONE (14:28)
[2017-02-18] MEDS ORDERED: LIDOCAINE 2% INJ 100 MG/5 ML SDV (FOR ANES.) As Ordered ONE (14:28)
[2017-02-18] MEDS ORDERED: PHENYLephrine HCL 500 MCG/5 ML (100MCG/ML) SYRINGE (J2370) As Ordered ONE (14:33)
[2017-02-18] MEDS ORDERED: ePHEDrine SULFATE 25 MG/5 ML(5MG/ML) SYRINGE As Ordered ONE (14:34)
[2017-02-18] MEDS ORDERED: KETOROLAC 60 MG/2 ML VIAL (J1885) As Ordered ONE (14:58)
[2017-02-18] MEDS ORDERED: PERCOCET 5MG/325MG TAB PO PRN (15:30)
[2017-02-18] MEDS ORDERED: fentaNYL 100 MCG/2 ML INJECTION (J3010) IV PRN (15:30)
[2017-02-18] MEDS ORDERED: LR 1,000 ML IV SCH (15:30)
[2017-02-18] MEDS ORDERED: HYDROmorphone HCL 1 MG/ML SYRINGE (J1170) IV PRN (15:30)
[2017-02-18] MEDS ORDERED: NORCO, ANEXSIA 5/325MG TABLET (HYDROcodone/ACETAMINOPHEN) PO PRN ×2 (15:30)
[2017-02-18] MEDS ORDERED: ONDANSETRON 4MG/2ML VIAL (J2405) IV PRN (15:30)
--- NOTE | 2017-02-18 15:34 | REP ---
Retrograde pyelogram: Three views. History: Left nephrolithiasis. Comparison study February 06, 2017. Findings: A sequence of three last image hold fluoroscopic spot radiographs of the abdomen document ureteral contrast injection and double pigtail ureteral stenting. No laterality markers are noted. 10 seconds of fluoroscopy time is reported. Signed by Santos Jaimes MD 02/18/2017 04:33 P
[2017-02-18 16:55] VITALS: BP 140/74
--- NOTE | 2017-02-19 09:16 | RO ---
DATE OF PROCEDURE: 02/18/2017 PREPROCEDURE DIAGNOSIS: Left ureteral stone. POSTPROCEDURE DIAGNOSIS: Left ureteral stone. OPERATIVE PROCEDURE: Cystoscopy, left ureteroscopy with basket extraction of stones, left retrograde pyelogram and intraoperative interpretation of images, left ureteral stent exchange. SURGEON: Adams Richey MD NARCOTICS AND/OR VICE DETECTIVE: None. ANESTHESIA: General. OPERATIVE INDICATIONS: This is a 56-year-old female who was recently seen in the hospital for an obstructing left ureteral stone and urinary tract infection. She had a stent placed at that time. She is here today for removal of her stone. DESCRIPTION OF PROCEDURE: The patient was brought to the operating room and general anesthesia was induced. Prophylactic antibiotics were infused. She was then placed in the dorsal lithotomy position, prepped and draped in the usual sterile fashion. A rigid cystoscope was then inserted into the urethral meatus and advanced to the bladder. Once within the bladder, the previously placed stent was seen. Of note the stent appeared to be very encrusted. The stent was withdrawn until the distal end was seen protruding from the urethral meatus. I advanced the wire up the stent up into the left collecting system. The stent was then removed. The wire was utilized to advance the ureteral access sheath up into the left collecting system. The wire was then secured to the drape to serve as a safety wire. I went up the access sheath with a flexible ureteroscope. The left kidney was thoroughly examined. Of note there appeared to be a moderate amount of old blood clot inside the left kidney. This blood clot was removed with a basket. She also had a moderate amount of very tiny stone fragments. There were no stones in her left kidney that appeared to be bigger than 1 mm in size. I then started to withdraw the ureteral access sheath along with the flexible ureteroscope. A retrograde pyelogram was performed. It was notable for mild left hydronephrosis with no extravasation. Within the distal left ureter, the 3 mm stone was seen. The stone was then grasped with a basket and withdrawn. The ureteroscope and access sheath were completely taken out. At this point, the previously placed wire was utilized to advance a #7-[id number] x 22-33 cm JJ ureteral stent up into the left collecting system. The wire was then removed and there were adequate curls of the stent in the left renal pelvis and in the bladder. The bladder was then emptied of all fluid. This marked the conclusion of the procedure. The patient was then taken out of the dorsal lithotomy position, awakened from anesthesia and transported to the recovery room in stable condition. ESTIMATED BLOOD LOSS: 0 mL. COMPLICATIONS: None. SPECIMENS: Left ureteral stone. PLAN: The patient will followup in the clinic in a week or two for stent removal. FAHAD
== END 2017-02-18 17:01 | disposition home or self-care (01) ==
LOC: M SDC 09:06
PROVIDERS: ATTEND Urology
DX: N20.1 Calculus of ureter (principal); E11.9 Type 2 diabetes mellitus without complications; I10 Essential (primary) hypertension; G47.30 Sleep apnea, unspecified; Z88.8 Allergy status to other drugs, medicaments and biological substances; Z91.030 Bee allergy status; Z79.82 Long term (current) use of aspirin; Z79.899 Other long term (current) drug therapy
CPT/HCPCS: 52332; 52352; 74420; 82360; 88300; C1769; C1894; C2617; J0330; J0690; J1885; J2250; J2370; J2405; J3010; Q9961

== ENCOUNTER 2017-07-29 05:44 | Emergency (ER) | payer BC ==
[2017-07-29] MEDS: KETOROLAC 30 MG/ML VIAL (J1885) IV (06:15)
[2017-07-29] MEDS: NS 1,000 ML IV (06:15)
[2017-07-29] MEDS: ONDANSETRON 4MG/2ML VIAL (J2405) IV (06:15)
[2017-07-29 06:34] LABS: KETONE, URINE AUTO RFX NEGATIVE (NEGATIVE); LEUKOCYTE ESTERASE UR AUTO RFX TRACE (NEGATIVE); MUCUS, URINE RFX SMALL (NEGATIVE); NITRITE, URINE AUTO RFX NEGATIVE (NEGATIVE); RBC, URINE AUTO RFX 55 /HPF (0-3); SPECIFIC GRAVITY UR AUTO RFX 1.017 (1.002-1.035); SQUAM EPITHELIAL CELL UR AURFX 3 /HPF (0-6); WBC, URINE AUTO RFX 10 /HPF (0-3)
[2017-07-29 06:43] LABS: BASO # 0.1 10^3/uL (0.0-0.2); BASO % 0.8 % (0.0-1.0); EOS # 0.3 10^3/uL (0.0-0.50); EOS % 2.7 % (0.0-3.0); HEMATOCRIT 38.6 % (36.0-47.0); HEMOGLOBIN 13.1 g/dl (12.0-15.5); IMMATURE GRANULOCYTE % 0.7 % (0-3.0); LYMPH # 2.2 10^3/uL (1.5-4.5); LYMPH % 18.1 % (24.0-44.0); MEAN CORPUSCULAR HEMOGLOBIN 28.5 pg (27.0-33.0); MEAN CORPUSCULAR HGB CONC 33.9 g/dl (32.0-36.5); MEAN CORPUSCULAR VOLUME 84.1 fl (80.0-96.0); MONO # 0.5 10^3/uL (0.0-0.8); MONO % 4.5 % (0.0-5.0); NEUTROPHILS # 8.7 10^3/uL (1.8-7.7); NEUTROPHILS % 73.2 % (36.0-66.0); PLATELET COUNT, AUTOMATED 279 10^3/uL (150-450); RED BLOOD COUNT 4.59 10^6/uL (4.00-5.40); RED CELL DISTRIBUTION WIDTH 12.9 % (11.5-14.5); WHITE BLOOD COUNT 11.9 10^3/uL (4.0-10.0)
[2017-07-29 07:12] LABS: ALBUMIN 3.4 GM/DL (3.2-5.2); ALBUMIN/GLOBULIN RATIO 0.83 (1.00-1.93); ALKALINE PHOSPHATASE 88 U/L (45-117); ALT/SGPT 36 U/L (12-78); ANION GAP 11 MEQ/L (8-16); AST/SGOT 22 U/L (7-37); BILIRUBIN,DIRECT < 0.1 MG/DL (0.0-0.2); BILIRUBIN,TOTAL 0.4 MG/DL (0.2-1.0); BLOOD UREA NITROGEN 28 MG/DL (7-18); CALCIUM LEVEL 8.7 MG/DL (8.5-10.1); CARBON DIOXIDE LEVEL 21 MEQ/L (21-32); CHLORIDE LEVEL 104 MEQ/L (98-107); CREATININE FOR GFR 1.51 MG/DL (0.55-1.30); GLOMERULAR FILTRATION RATE 38.1 (>51); GLUCOSE, FASTING 370 MG/DL (70-100); LIPASE 134 U/L (73-393); POTASSIUM SERUM 4.8 MEQ/L (3.5-5.1); SODIUM LEVEL 136 MEQ/L (136-145); TOTAL PROTEIN 7.5 GM/DL (6.4-8.2)
[2017-07-29] MEDS: CIPROFLOXACIN 500 MG TAB PO (08:02)
[2017-07-29] MEDS: TAMSULOSIN 0.4 MG CAP PO (08:02)
== END 2017-07-29 08:11 | disposition home or self-care (01) ==
LOC: M ED 05:44
DX: N20.1 Calculus of ureter (principal); N30.00 Acute cystitis without hematuria; E86.0 Dehydration; R10.32 Left lower quadrant pain; Z87.442 Personal history of urinary calculi; E11.9 Type 2 diabetes mellitus without complications; Z87.440 Personal history of urinary (tract) infections; K57.30 Diverticulosis of large intestine without perforation or abscess without bleeding; Z79.82 Long term (current) use of aspirin; Z79.899 Other long term (current) drug therapy; Z88.8 Allergy status to other drugs, medicaments and biological substances; Z91.030 Bee allergy status
CPT/HCPCS: J2405

== ENCOUNTER → 2017-11-01 | Outpatient (REF) | payer BC ==
[2017-11-01 15:56] LABS: ALBUMIN 3.2 GM/DL (3.2-5.2); ALBUMIN/GLOBULIN RATIO 0.82 (1.00-1.93); ALKALINE PHOSPHATASE 84 U/L (45-117); ALT/SGPT 32 U/L (12-78); ANION GAP 13 MEQ/L (8-16); AST/SGOT 15 U/L (7-37); BILIRUBIN,TOTAL 0.2 MG/DL (0.2-1.0); BLOOD UREA NITROGEN 30 MG/DL (7-18); CALCIUM LEVEL 8.6 MG/DL (8.5-10.1); CARBON DIOXIDE LEVEL 23 MEQ/L (21-32); CHLORIDE LEVEL 102 MEQ/L (98-107); CHOLESTEROL LEVEL 151 MG/DL (<200); CHOLESTEROL RISK RATIO 3.682 (<5); CREATININE FOR GFR 1.37 MG/DL (0.55-1.30); GLOMERULAR FILTRATION RATE 42.6 (>51); GLUCOSE, FASTING 327 MG/DL (70-100); HDL CHOLESTEROL 41 MG/DL (>40); LDL CHOLESTEROL 41.8 MG/DL (<100); NON-HDL-C 110 MG/DL; POTASSIUM SERUM 4.4 MEQ/L (3.5-5.1); SODIUM LEVEL 138 MEQ/L (136-145); TOTAL PROTEIN 7.1 GM/DL (6.4-8.2); TRIGLYCERIDES LEVEL 341 MG/DL (<150)
[2017-11-01 16:02] LABS: ESTIMATED AVERAGE GLUCOSE 240 MG/DL (60-110)
== END ==
LOC: M SFHCLACO 08:09
DX: I10 Essential (primary) hypertension (principal); E11.65 Type 2 diabetes mellitus with hyperglycemia; N20.0 Calculus of kidney; E78.1 Pure hyperglyceridemia; Z68.41 Body mass index [BMI] 40.0-44.9, adult
CPT/HCPCS: 80053

== ENCOUNTER → 2019-04-07 | Outpatient (REF) | payer BC ==
[~2019-04-07] MED LIST changes: -AMLO10TA2 PO; +AMLO10TA5 PO; +ASPI-286 PO; -ASPI1TAB PO; +ASPI81TA26 PO; -CEFAZOLIN SOD 1 GM in APPROPRIATE DILUENT 1 EA IV ONE; -CHIL81CH2 PO; +CHLO125TA PO; -CHLO25TA PO; +CIPR-249 PO; +FLOM0.4C39 PO; +HYDR-3715 PO; -LOSA50TA20 PO; +LOSA50TA88 PO; +METO1TAB63 PO; -METO25TAB PO; +SPIR-10 PO; -SPIR25TA2 PO; +VERA180T3 PO; -VERA1TAB11 PO; +ZOFR4TAB14 PO
[2019-04-07 17:40] LABS: HEMOGLOBIN A1c 9.6 %
[2019-04-07 17:57] LABS: ALBUMIN 3.3 GM/DL (3.2-5.2); BILIRUBIN,TOTAL 0.4 MG/DL (0.2-1.0); CALCIUM LEVEL 8.9 MG/DL (8.5-10.1); CHOLESTEROL RISK RATIO 4.578 (<5); CREATININE FOR GFR 1.35 MG/DL (0.55-1.30); GLOMERULAR FILTRATION RATE 43.2 (>51); THYROID STIMULATING HORMONE 1.6 uIU/ML (0.358-3.740); TOTAL PROTEIN 7.2 GM/DL (6.4-8.2)
== END ==
LOC: M SFHCADAM 08:21
PROVIDERS: ATTEND Physician Assistant
DX: I10 Essential (primary) hypertension (principal); E11.65 Type 2 diabetes mellitus with hyperglycemia; E78.1 Pure hyperglyceridemia; Z68.41 Body mass index [BMI] 40.0-44.9, adult; E04.2 Nontoxic multinodular goiter

== ENCOUNTER → 2019-04-18 | Outpatient (REF) | payer BC | LOC: M LAB REF 09:04 | PROVIDERS: ATTEND Dermatology | DX: L30.9 Dermatitis, unspecified (principal) ==

== ENCOUNTER → 2019-07-07 | Outpatient (REF) | payer BC ==
[~2019-07-07] MED LIST changes: +CYCL-707 PO; -CYCL10TA PO
[2019-07-07 17:29] LABS: ALBUMIN 3.1 GM/DL (3.2-5.2); BILIRUBIN,TOTAL 0.3 MG/DL (0.2-1.0); CALCIUM LEVEL 11.1 MG/DL (8.5-10.1); CHOLESTEROL RISK RATIO 4.305 (<5); CREATININE FOR GFR 1.76 MG/DL (0.55-1.30); GLOMERULAR FILTRATION RATE 31.7 (>51); POTASSIUM SERUM 4.5 MEQ/L (3.5-5.1); TOTAL PROTEIN 6.7 GM/DL (6.4-8.2)
[2019-07-07 17:39] LABS: HEMOGLOBIN A1c 8.3 %
== END ==
LOC: M SFHCADAM 09:32
PROVIDERS: ATTEND Physician Assistant
DX: I10 Essential (primary) hypertension (principal); E11.65 Type 2 diabetes mellitus with hyperglycemia; E78.1 Pure hyperglyceridemia; Z68.41 Body mass index [BMI] 40.0-44.9, adult

== ENCOUNTER → 2019-07-07 | Outpatient (CLI) | payer BC | LOC: M ADAMS 10:04 | PROVIDERS: ATTEND Physician Assistant | DX: I10 Essential (primary) hypertension (principal); E11.65 Type 2 diabetes mellitus with hyperglycemia; E78.41 Elevated Lipoprotein(a) ==

== ENCOUNTER 2019-07-15 11:08 | Emergency (ER) | payer BC ==
[~2019-07-15] VITALS: Ht 168.9 cm; Wt 127.3 kg
[2019-07-15] MEDS ORDERED: CETI10CH PO (11:27)
[2019-07-15] MEDS ORDERED: TRES1INJ (11:27)
[2019-07-15] MEDS ORDERED: ONDANSETRON 4MG/2ML VIAL IV ONE ×2 (11:45→13:15)
[2019-07-15 12:03] LABS: BASO # 0.1 10^3/uL (0.0-0.2); BASO % 0.5 % (0.0-1.0); EOS # 0.5 10^3/uL (0.0-0.5); EOS % 4.1 % (0.0-3.0); HEMATOCRIT 35.1 % (36.0-47.0); HEMOGLOBIN 11.9 g/dl (12.0-15.5); LYMPH # 1.7 10^3/uL (1.5-5.0); LYMPH % 15.3 % (24.0-44.0); MEAN CORPUSCULAR HEMOGLOBIN 27.6 pg (27.0-33.0); MEAN CORPUSCULAR HGB CONC 33.9 g/dl (32.0-36.5); MEAN CORPUSCULAR VOLUME 81.4 fl (80.0-96.0); MONO # 0.7 10^3/uL (0.0-0.8); MONO % 6.4 % (0.0-5.0); NEUTROPHILS # 8.1 10^3/uL (1.5-8.5); NEUTROPHILS % 73.1 % (36.0-66.0); PLATELET COUNT, AUTOMATED 267 10^3/uL (150-450); RED BLOOD COUNT 4.31 10^6/uL (4.00-5.40); WHITE BLOOD COUNT 11.1 10^3/uL (4.0-10.0)
[2019-07-15] MEDS: MORPHINE 2 MG/ML 1ML VIAL (J2270) IV PRN ×2 (12:09→13:22)
[2019-07-15 12:25] LABS: ALT/SGPT 12 U/L (12-78); BILIRUBIN,DIRECT < 0.1 MG/DL (0.0-0.2); BILIRUBIN,TOTAL 0.3 MG/DL (0.2-1.0); LIPASE 60 U/L (73-393)
--- NOTE | 2019-07-15 12:29 | REP ---
CT ABDOMEN AND PELVIS WITHOUT CONTRAST: CT abdomen and pelvis performed without oral or IV contrast. Sagittal and coronal reconstruction images are performed. Comparison made with prior studies 07/29/2017 as well as other prior exams. The visualized lung bases demonstrate three new subcentimeter nodular opacities in each lung base. The liver is grossly unremarkable. The patient has had a prior cholecystectomy. I did not see evidence of biliary dilatation. The spleen is normal in size. The adrenal glands are normal. Pancreas is grossly unremarkable. The kidneys are grossly unremarkable with no hydronephrosis. There is moderate left hydronephrosis caused by a 4 mm zone in the mild left ureter. There is left perinephric stranding. There is punctate calcification of the left upper pole collecting system. There is an oval calcification in the left lower pole collecting systems 7 mm in diameter. There is no abdominal aortic aneurysm. There is no adenopathy. There is no free air or free fluid. There is no bowel thickening. Scattered diverticula are seen in the colon without acute diverticulitis. The appendix is normal. No pelvic mass is seen. The urinary bladder is minimally distended and grossly unremarkable. There are degenerative changes of the spine. IMPRESSION: There are three new subcentimeter nodular opacities in each lung base. Recommend followup CT of the chest to assess remaining lung zarate. There is a 4 mm calculus in the mid left ureter causing moderate left hydronephrosis. There are two intrarenal calculi on the left as well. Electronically Signed by Gabino Sawyer MD 07/15/2019 09:56 P
[2019-07-15] MEDS ORDERED: NORC1TAB7 PO (13:09)
[2019-07-15] MEDS ORDERED: MORPHINE 2 MG/ML 1ML VIAL (J2270) IV PRN (13:15)
[2019-07-15] MEDS ORDERED: NORCO, ANEXSIA 5/325MG TABLET (HYDROcodone/ACETAMINOPHEN) PO ONE (13:15)
[2019-07-15] MEDS ORDERED: NS 500 ML IV ONE (13:15)
[2019-07-15 15:45] VITALS: BP 145/71
== END 2019-07-15 16:00 | disposition home or self-care (01) ==
LOC: EDUNIT# 11:08 → M ED 11:08 → EDBD 11:08 → M ED 16:00
DX: N20.1 Calculus of ureter (principal); E11.9 Type 2 diabetes mellitus without complications; I10 Essential (primary) hypertension; G47.30 Sleep apnea, unspecified; I27.20 Pulmonary hypertension, unspecified; Z87.442 Personal history of urinary calculi; Z88.8 Allergy status to other drugs, medicaments and biological substances; Z91.030 Bee allergy status; Z79.899 Other long term (current) drug therapy; Z79.4 Long term (current) use of insulin; Z79.82 Long term (current) use of aspirin
CPT/HCPCS: 74176; 80047; 80076; 81001; 83690; 85025; 87086; 93041; 96374; 96375; 96376; 99285; J2270; J2405

== ENCOUNTER 2019-10-09 18:27 | Inpatient (IN) | payer BC ==
[~2019-10-09] VITALS: Ht 170.2 cm; Wt 126.3 kg
[~2019-10-09 18:27] MED LIST changes: -AMLO10TA5 PO; +AMLO1TAB25 PO; +CETI10CH PO; +NORC1TAB7 PO; +TRES1INJ SC
[2019-10-09] MEDS ORDERED: NS 1,000 ML IV ONE ×2 (19:30→21:15)
--- NOTE | 2019-10-09 19:48 | REP ---
Clinical: Diabetic ketoacidosis . Comparison: 02/06/2017 . Findings: The mediastinum and cardiac silhouette are stable and within normal limits for portable technique. The lung zarate are clear without acute consolidation, effusion, or pneumothorax. Skeletal structures are intact. Impression: No acute cardiopulmonary process appreciated. Electronically Signed by Jack Holguin MD 10/09/2019 07:39 P
[2019-10-09 19:53] LABS: VENOUS BASE EXCESS -6.2 (-2.0-2.0); VENOUS HCO3 19.9 MEQ/L (23.0-27.0); VENOUS O2 SATURATION 82.4 % (60.0-80.0); VENOUS PARTIAL PRESSURE CO2 41.5 mmHg (38.0-50.0); VENOUS PARTIAL PRESSURE O2 48.3 mmHg (30.0-50.0); VENOUS PH 7.299 UNITS (7.330-7.430); VENOUS STANDARD HCO3 19.1 MEQ/L; VENOUS TOTAL CO2 21.2 MEQ/L (24.0-28.0)
[2019-10-09 20:08] LABS: BASO # 0.1 10^3/uL (0.0-0.2); BASO % 0.6 % (0.0-1.0); EOS # 0.2 10^3/uL (0.0-0.5); EOS % 1.4 % (0.0-3.0); HEMATOCRIT 40.7 % (36.0-47.0); HEMOGLOBIN 13.7 g/dl (12.0-15.5); LYMPH # 1.7 10^3/uL (1.5-5.0); LYMPH % 10.2 % (24.0-44.0); MEAN CORPUSCULAR HEMOGLOBIN 27.6 pg (27.0-33.0); MEAN CORPUSCULAR HGB CONC 33.7 g/dl (32.0-36.5); MEAN CORPUSCULAR VOLUME 81.9 fl (80.0-96.0); MONO # 0.7 10^3/uL (0.0-0.8); MONO % 4.4 % (0.0-5.0); NEUTROPHILS # 13.5 10^3/uL (1.5-8.5); NEUTROPHILS % 82.8 % (36.0-66.0); PLATELET COUNT, AUTOMATED 250 10^3/uL (150-450); RED BLOOD COUNT 4.97 10^6/uL (4.00-5.40); WHITE BLOOD COUNT 16.3 10^3/uL (4.0-10.0)
[2019-10-09 20:22] LABS: ACETONE/KETONE 12.32 MG/DL (<2.81); ALBUMIN 3.4 GM/DL (3.2-5.2); BILIRUBIN,DIRECT 0.1 MG/DL (0.0-0.2); BILIRUBIN,TOTAL 0.4 MG/DL (0.2-1.0); CK-MB VALUE MASS 3.6 NG/ML (<3.6); MB/CK RELATIVE INDEX 10.91 (< OR =4); TOTAL PROTEIN 7.4 GM/DL (6.4-8.2); TROPONIN I 0.26 NG/ML (< 0.10)
[2019-10-09 20:59] LABS: HEMOGLOBIN A1c 10.9 %
[2019-10-09] MEDS ORDERED: HumaLOG INSULIN (NovoLOG) PER UNIT SC SCH (21:00)
[2019-10-09] MEDS ORDERED: HumaLOG INSULIN (NovoLOG) PER UNIT SC STA (21:13)
[2019-10-09] MEDS ORDERED: ONDANSETRON 4MG/2ML VIAL IV ONE (21:45)
[2019-10-09 23:48] LABS: CK-MB VALUE MASS 3.8 NG/ML (<3.6); MB/CK RELATIVE INDEX 10.56 (< OR =4); TROPONIN I 0.31 NG/ML (< 0.10)
[2019-10-10] VITALS (9 sets, daily range): BP systolic 131–192; BP diastolic 65–110
[2019-10-10] MEDS ORDERED: SPIR-10 PO (00:26)
[2019-10-10] MEDS ORDERED: CHLO25TA PO (00:26)
[2019-10-10] MEDS ORDERED: CETI-24 PO (00:26)
[2019-10-10] MEDS ORDERED: cefTRIAXone SOD 2 GM in D5W MINI-BAG PLUS 50 ML IV ONE (00:30)
[2019-10-10] MEDS ORDERED: ONDANSETRON 4MG/2ML VIAL IV PRN (01:00)
[2019-10-10] MEDS ORDERED: ACETAMINOPHEN TAB 650MG DOSE (2X325MG) PO PRN (01:00)
[2019-10-10] MEDS ORDERED: GLUCAGON INJ 1MG VIAL SC PRN ×2 (01:15→19:30)
[2019-10-10] MEDS ORDERED: DEXTROSE 50% 50 ML SYRINGE IV PRN ×2 (01:15→19:30)
[2019-10-10] MEDS ORDERED: GLUCOSE 4GM CHEW TABLET PO PRN ×2 (01:15→19:30)
[2019-10-10] MEDS: NS 1,000 ML IV SCH ×3 (02:25→22:38)
--- NOTE | 2019-10-10 02:34 | HPEPDOC ---
[facility] Medical History & Physical Date of Admission Oct 10, 2019 Date of Service: Oct 10, 2019 Attending Physician: DAVID GARDUNO MD History and Physical CHIEF COMPLAINT: Generalized weakness and presyncope HISTORY OF PRESENT ILLNESS: 59-year-old W with a history of hypertension, uncontrolled IDDM, obstructive sleep apnea, multinodular goiter, history of multiple kidney stones s/p lith otripsy, history SVT, obstructive sleep apnea, pulmonary hypertension secondary to SAMANTHA, morbid obesity and medication non-compliance who presented to the ED with generalized body weakness and presyncope of 1 day duration. She reports poor PO and generalized weakness and felt like she was going to pass out and that prompted her to have her drive to the ED. She essentially only endorsed generalized weakness without dysuria, hematuria, back or flank pain, fever, chills, nausea, emesis, abdominal pain, chest pain, chest pressure or shortness of breath. In the ED, she was hemodynamically stable and afebrile. Investigations were notable for WBC 16.3, Hgb 13.7, platelets 250, hyperglycemia to 430s with normal anion gap and elevated beta hydroxybutyrate, Na 136, K 4.3, Cr 1.6 from last kn own baseline of 1.35, +UA with 3+ leuk esterase, 27 WBCs, 7 RBCs, 1+ bacteria, EKG with no ST changes however with elevated troponin to 0.26 and 0.31 on repeat. She had BCx drawn and given empiric ceftriaxone, 2L NS and 12units of insulin after she reported non-compliance and only took her tresiba 60 units this afternoon about 30 minutes before she presented to the ED. She is now being admitted to medicine for sepsis 2/2 UTI, NATHAN on CKD, type 2 NSTEMI with troponinemia and uncontrolled IDDM with hyperglycemia. PAST MEDICAL HISTORY: 1. Diabetes. 2. Hypertension. 3. History of kidney stones. s/p lithotripsy 4. Morbid obesity, Body Mass Index (BMI) of 45.5. 5. Pulmonary hypertension secondary to obstructive sleep apnea. 6. Multinodular goiter. 7. Metabolic syndrome. 8. SVT. 9. SAMANTHA. ALLERGIES: BEES, LISINOPRIL. SOCIAL HISTORY: Denies recreational illicit drug use, alcohol or tobacco use. FAMILY HISTORY: Mother: IDDM2 Father: prostate cancer REVIEW OF SYSTEMS: 12-point system negative aside from positive findings in history of present illness. PHYSICAL EXAMINATION: Vitals: HDS, afebrile, breathing comfortably on room air. See below for details GENERAL: Awake, alert, oriented times three. Morbidly obese. NAD. HEENT: PERRLA, EOMI, no pallor or icterus. PULM: No respiratory distress, cyanosis, speaking in full sentences, while CTAB without crackles, rhonchi or wheezing at this time. CARDIAC: No JVD, sinus, with normal S1, S2, without noted murmurs, rubs or gallops ABDOMEN: Normoactive bowel sounds, soft, obese, no costovertebral angle tenderness. No rebound or guarding. EXTREMITIES: Chronic pitting edema with venous stasis skin changes and h yperkeratosis. PSYCH: AOx3 LABORATORY DATA: summarized above. see below for details EKG with sinus rhythm. No acute ST-T changes. ASSESSMENT: 59-year-old W with uncontrolled diabetes, hypertension, hyperlipidemia, obstructive sleep apnea, pulmonary hypertension, multinodular goiter, history of recurrent kidney stones who presented to the emergency room with acute generalized weakness and presyncope and found to have leukocytosis, evidence of a UTI with abnormal urinalysis, elevated troponin without chest pain and uncontrolled DM with ketotic non-gap hyperglycemia. She is now being admitted to medicine for sepsis 2/2 UTI, NATHAN on CKD, type 2 NSTEMI with asymptomatic troponinemia and uncontrolled IDDM with hyperglycemia. Plan: Sepsis 2/2 UTI: Tachycardia, leukocytosis with +UA and presyncope -continue empiric ceftriaxone -f/u UCx and BCx -no clinical evidence of pyelonephritis stone related pain complaints at this time -s/p 2L NS, continue fluids at 125cc/hr NATHAN on CKD: in the setting of poor PO while feeling poorly, likely prerenal also while on metformin, ARB -hold metformin, losartan, chlorthalidone, aldactone -s/p 2L NS, now on 125cc/hr -check AM BMP -If NATHAN does not improve to order urine lytes and consider renal US given history of stones and obstructive pathology in the past -strict I/Os, daily weights Uncontrolled type 2 diabetes: with ketosis in the setting of medication non- compliance -continue long acting insulin as levemir 60 BID per intended home dosing -SSI AC/HS -FSBG AC/HS -Hypoglycemic protocol. -hold home metformin and sitagliptin -Discussed the consequences of medication noncompliance including feeling poorly, frequency of UTIs and other microvascular complications -a1c is currently 10.9 -consistent carb diet Elevated troponin: technically with type 2 NSTEMI with stable non ischemic EKG with no symptoms and elevated troponin, likely 2/2 NATHAN and/or sepsis -telemetry -trend troponin -treating NATHAN and UTI per above Hypertension: -continue home coreg and verapamil. Holding ARB and chlorthalidone. History of multinodular goiter: -check TSH and free T4 with AM labs History of SVT: Currently in sinus rhythm. SAMANTHA: -Continue with home CPAP Pulmonary hypertension: secondary to severe SAMANTHA -Continue with QHS CPAP Morbid obesity, Body Mass Index of 43.9, complicates her care Deep vein thrombosis (DVT) prophylaxis. Compression stockings and heparin SQ Vital Signs Vital Signs Date Time Temp Pulse Resp B/P (MAP) Pulse Ox O2 Delivery O2 Flow Rate FiO2 10/10/19 01:23 146/70 (95) 10/10/19 01:17 95 95 10/09/19 22:46 16 10/09/19 22:01 Room Air 10/09/19 18:47 97.9 Laboratory Data Labs 24H Laboratory Tests 2 10/09/19 19:12: Immature Granulocyte % (Auto) 0.6, Neutrophils (%) (Auto) 82.8H, Lymphocytes (%) (Auto) 10.2L, Monocytes (%) (Auto) 4.4, Eosinophils (%) (Auto) 1.4, Basophils (%) (Auto) 0.6, Neutrophils # (Auto) 13.5H, Lymphocytes # (Auto) 1.7, Monocytes # (Auto) 0.7, Eosinophils # (Auto) 0.2, Basophils # (Auto) 0.1, Nucleated Red Blood Cells % (auto) 0.0, Blood Gas Bicarbonate Standard 19.1, Venous Blood pH 7.299L, Venous Blood Partial Pressure CO2 41.5, Venous Blood Partial Pressure O2 48.3, Venous Blood Total Carbon Dioxide 21.2L, Venous Blood HCO3 19.9L, Venous Blood Oxygen Saturation 82.4H, Venous Blood Base Excess -6.2L, Estimated Mean Plasma Glucose 266H, Hemoglobin A1c 10.9, Osmolality 314H, Total Bilirubin 0.4, Direct Bilirubin 0.1, Aspartate Amino Transf (AST/SGOT) 18, Alanine Aminotransferase (ALT/SGPT) 20, Alkaline Phosphatase 101, Total Creatine Kinase 33, Creatine Kinase MB 3.6, Creatine Kinase MB Relative Index 10.91H, Troponin I 0.26H, Total Protein 7.4, Albumin 3.4, Albumin/Globulin Ratio 0.9L, Lipase 72L, B-Hydroxybutyrate 12.32H 10/09/19 19:37: POC Glucose (Misc Panel) 413H, POC Sodium (Misc Panel) 134L, POC Potassium (Misc Panel) 4.4, POC Chloride (Misc Panel) 102, POC Total CO2 (Misc Panel) 19.0L, POC Blood Urea Nitrogen (Misc Panel 35H, POC Ionized Calcium (Misc Panel) 6.2H, POC Creatinine (Misc Panel) 1.7H, POC Hematocrit (Misc Panel) 43.0 10/09/19 20:31: Bedside Glucose (Misc Panel) 399H 10/09/19 21:30: Bedside Glucose (Misc Panel) 393H 10/09/19 22:40: Urine Color YELLOW, Urine Appearance HAZY, Urine pH 5.0, Urine Specific [place] 1.023, Urine Protein 1+H, Urine Glucose (UA) 3+H, Urine Ketones TRACEH, Urine Blood 1+H, Urine Nitrite NEGATIVE, Urine Bilirubin NEGATIVE, Urine Urobilinogen 0.2, Urine Leukocyte Esterase 3+H, Urine WBC (Auto) 27H, Urine RBC (Auto) 7H, Urine Hyaline Casts (Auto) 0, Urine Bacteria (Auto) 1+H, Urine Squamous Epithelial Cells 1, Urine Transitional Epithelial Cells 1, Urine Mucus (Auto) SMALL, Urine Sperm (Auto) 10/09/19 23:15: Total Creatine Kinase 36, Creatine Kinase MB 3.8H, Creatine Kinase MB Relative Index 10.56H, Troponin I 0.31H 10/09/19 23:20: POC Glucose (Misc Panel) 372H, POC Sodium (Misc Panel) 136, POC Potassium (Misc Panel) 4.3, POC Chloride (Misc Panel) 106, POC Total CO2 (Misc Panel) 19.0L, POC Blood Urea Nitrogen (Misc Panel 34H, POC Ionized Calcium (Misc Panel) 6.1H, POC Creatinine (Misc Panel) 1.6H, POC Hematocrit (Misc Panel) 39.0 CBC/BMP Laboratory Tests 10/09/19 19:12 Microbiology Microbiology 10/09/19 Urine Culture, Received Pending 10/09/19 Blood Culture, Received Pending 10/09/19 Blood Culture, Received Pending Home Medications Scheduled Aspirin (Aspirin EC) 81 Mg Tab, 81 MG PO DAILY Carvedilol (Coreg) 6.25 Mg Tab, 6.25 MG PO BID Cetirizine HCl (Cetirizine HCl) 10 Mg Tablet, 10 MG PO DAILY Chlorthalidone (Chlorthalidone) 25 Mg Tablet, 25 MG PO DAILY Insulin Degludec (Tresiba Flextouch U-200) 200 Unit/1 Ml Insuln.pen, 60 UNITS SC BID Losartan Potassium (Losartan Potassium) 50 Mg Tab, 50 MG PO QHS Metformin HCl (Metformin HCl) 1,000 Mg Tab, 1,000 MG PO BID Sitagliptin Phosphate (Januvia) 100 Mg Tab, 100 MG PO DAILY Spironolactone (Spironolactone) 25 Mg Tablet, 25 MG PO DAILY Verapamil HCl (Verapamil ER) 240 Mg Tabcr, 240 MG PO QHS Allergies Coded Allergies: bee venom protein (honey bee) (Verified Allergy, Unknown, 07/15/19) lisinopril (Verified Adverse Reaction, Severe, angioedema, 07/15/19) A-FIB/CHADSVASC A-FIB History Current/History of A-Fib/PAF?: No Current PO Anticoag Therapy: No Age/Risk Factor Scoring CHADSVASC: CHADSVASC Response (Comments) Value Age Risk Factor Age < 65 years old 0 Gender Risk Factor Female 1 Hx of CHF No 0 Hx of HTN Yes 1 Hx of Stroke/TIA/or VTE No 0 Hx of Diabetes Yes 1 Hx of Vascular Disease Yes 1 Total 4 Treatment Treatment ordered: NONE Reason Anticoagulant not given: Not indicated/[id number] DAVID GARDUNO MD Oct 10, 2019 02:34
[2019-10-10 03:35] LABS: CALCIUM LEVEL 10.8 MG/DL (8.5-10.1); CREATININE FOR GFR 1.81 MG/DL (0.55-1.30); GLOMERULAR FILTRATION RATE 30.7 (>51); POTASSIUM SERUM 4.2 MEQ/L (3.5-5.1)
[2019-10-10] MEDS ORDERED: LABETALOL 100 MG TAB PO ONE (03:45)
[2019-10-10] MEDS ORDERED: PILL CUTTER 1 EACH XX PRN (04:00)
[2019-10-10 06:49] LABS: FREE T4 1.43 NG/DL (0.76-1.46); THYROID STIMULATING HORMONE 1.37 uIU/ML (0.358-3.740)
[2019-10-10] MEDS ORDERED: HumaLOG INSULIN (NovoLOG) PER UNIT SC SCH ×2 (07:30→21:00)
[2019-10-10 08:25] LABS: BASO # 0.1 10^3/uL (0.0-0.2); BASO % 0.6 % (0.0-1.0); EOS # 0.2 10^3/uL (0.0-0.5); EOS % 1.3 % (0.0-3.0); HEMATOCRIT 36.2 % (36.0-47.0); HEMOGLOBIN 12.2 g/dl (12.0-15.5); LYMPH # 2.8 10^3/uL (1.5-5.0); LYMPH % 20.6 % (24.0-44.0); MEAN CORPUSCULAR HEMOGLOBIN 27.9 pg (27.0-33.0); MEAN CORPUSCULAR HGB CONC 33.7 g/dl (32.0-36.5); MEAN CORPUSCULAR VOLUME 82.8 fl (80.0-96.0); MONO # 0.8 10^3/uL (0.0-0.8); NEUTROPHILS # 9.5 10^3/uL (1.5-8.5); PLATELET COUNT, AUTOMATED 233 10^3/uL (150-450); RED BLOOD COUNT 4.37 10^6/uL (4.00-5.40); WHITE BLOOD COUNT 13.4 10^3/uL (4.0-10.0)
[2019-10-10 08:34] LABS: INR 1.16; PROTHROMBIN TIME 14.5 SECONDS (11.8-14.0)
[2019-10-10 08:35] LABS: PARTIAL THROMBOPLASTIN TIME 25.3 SECONDS (25.0-38.4)
--- NOTE | 2019-10-10 08:41 | IPNPDOC ---
Text Note Date of Service The patient was seen on 10/10/19. NOTE Rapid Assessment Team Note RAT was called to assess the patient due to possible syncope while on the toilet. The patient was being monitored on telemetry at the time and was noticed to drop down to a HR in the 40s during the event. She was nonresponsive on initial assessment but was able to be woken up. FSBS was checked and was in the 300s. Vital signs were stable. The patient was moved to the bed and remained stable. Assessment/Plan: 59 year old female with history of hypertension, uncontrolled IDDM, obstructive sleep apnea, multinodular goiter, history of multiple kidney stones s/p lithotripsy, history SVT, obstructive sleep apnea, pulmonary hypertension secondary to SAMANTHA, morbid obesity and medication non-compliance, who had an apparent vasovagal episode while using the toilet. 1. Vasovagal episode secondary to bradycardia while on the toilet - bradycardic down to 40s on telemetry during the event. Ordered stat EKG, continue to monitor on TM - recheck labs including CBC, CMP, cardiac marker panel, lactic acid, ketones, ABG - continue IV fluids 2. rule out GI bleed - check stool occult - discontinued sc heparin DVT prophylaxis - IV PPI BID - NPO, changed FSBS to q6h with SSI - check coag panel VS,[place], I+O VS, [place], I+O Laboratory Tests 10/09/19 19:12 10/10/19 02:44 10/10/19 08:07 Vital Signs Date Time Temp Pulse Resp B/P (MAP) Pulse Ox O2 Delivery O2 Flow Rate FiO2 10/10/19 08:11 91 20 134/65 (88) 95 Nasal Cannula 2.0 10/10/19 08:00 96.1 I&O- Last 24 Hours up to 6 AM 10/10/19 06:00 Intake Total 2615 ml Output Total 250 ml Balance 2365 ml GAL DAVIS D.O. Oct 10, 2019 08:41
[2019-10-10 08:46] LABS: ABG BASE EXCESS -7.5 (-2.0-2.0); ABG HCO3 17.4 MEQ/L (22.0-26.0); ABG O2 SATURATION 98.4 % (95.0-99.0); ABG PARTIAL PRESSURE CO2 33.5 mmHg (35.0-45.0); ABG PARTIAL PRESSURE O2 121.2 mmHg (75.0-100.0); ABG STANDARD HCO3 18.4 MEQ/L (22.0-26.0); ABG TOTAL CO2 18.4 MEQ/L (22.0-29.0); ABG pH (ARTERIAL) 7.333 UNITS (7.350-7.450)
[2019-10-10 08:57] LABS: ALBUMIN 2.7 GM/DL (3.2-5.2); BILIRUBIN,TOTAL 0.2 MG/DL (0.2-1.0); CALCIUM LEVEL 10.8 MG/DL (8.5-10.1); CK-MB VALUE MASS 3.7 NG/ML (<3.6); CREATININE FOR GFR 1.79 MG/DL (0.55-1.30); GLOMERULAR FILTRATION RATE 31.1 (>51); MB/CK RELATIVE INDEX 9.49 (< OR =4); TOTAL PROTEIN 6.6 GM/DL (6.4-8.2); TROPONIN I 0.24 NG/ML (< 0.10)
[2019-10-10] MEDS: CARVedilol 6.25 MG TAB PO SCH ×2 (09:00→20:55)
[2019-10-10] MEDS ORDERED: HEPARIN SOD (PORCINE) 5000UNITS/ML 1ML VIAL/SYRINGE SC SCH (09:00)
[2019-10-10] MEDS ORDERED: NS 500 ML IV ONE (09:00)
[2019-10-10] MEDS: LEVEMIR (INSULIN DETEMIR) 1 UNITS/0.01ML SC SCH ×2 (09:00→20:54)
[2019-10-10] MEDS: ASPIRIN 81 MG ENTERIC TAB PO SCH (09:02)
[2019-10-10] MEDS: CETIRIZINE (ZyrTEC) 10 MG TAB PO SCH (09:02)
[2019-10-10] MEDS: HumaLOG INSULIN (NovoLOG) PER UNIT SC SCH ×3 (09:04→17:56)
[2019-10-10] MEDS: PANTOPRAZOLE 40MG VIAL (C9113 PER 1) IV SCH ×2 (09:08→20:54)
--- NOTE | 2019-10-10 10:43 | ECGEPIP ---
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
--- NOTE | 2019-10-10 10:59 | ECGEPIP ---
[facility] - ED Test Date: 2019-10-10 Pat Name: LORELEI SHIPLEY Department: Room: [place] [address] Gender: Female Rn Traveling: shannen : 1960 Requested By: JOVANNA Morrissey Order Number: [id number] Reading MD: Yarely Haque Measurements Intervals [place] Rate: 99 P: 36 NE: 134 QRS: -4 QRSD: 85 T: -27 QT: 315 QTc: 405 Interpretive Statements SINUS RHYTHM LOW QRS VOLTAGE IN PRECORDIAL LEADS ANTEROSEPTAL MYOCARDIAL INFARCTION, OF INDETERMINATE AGE NSTTW abnormalities SIMILAR 10/09/19 19:16 Electronically Signed on 10-10-2019 10:58:42 EDT by Yarely Haque
--- NOTE | 2019-10-10 18:51 | IPNPDOC ---
Date Seen The patient was seen on 10/10/19. Progress Note SUBJECTIVE: Patient seen and examined at bedside. Patient quite well evaluation with no acute complaints. Patient says she's still feeling slightly dizzy, unchanged position. In the a.m. patient had rapid assessment called for syncopal episode likely in the setting of sepsis and orthostasis. Patient much improved currently on fluids. Patient denies any fever, chills, chest pain, difficulty breathing, nausea, vomiting, abdominal pain, dysuria, diarrhea, leg pain or swelling. OBJECTIVE PHYSICAL EXAMINATION: VITAL SIGNS: Please see below. GENERAL: Pleasant female laying in bed in no acute distress, appears older than stated age CARDIOVASCULAR: RRR, normal S1/2 RESPIRATORY: CTA B/L, no W/R/R ABDOMINAL: Soft, nontender, nondistended EXTREMITIES:. Trace1+ lower extremity edema. Intact distal pulses NEUROLOGICAL: Normal speech, no focal deficits appreciated PSYCHOLOGICAL:. AAO 3, appropriate LABORATORY DATA, IMAGING STUDIES, MICROBIOLOGY: Please see below. DVT prophylaxis ordered?: Heparin ASSESSMENT AND PLAN: 59-year-old W with uncontrolled diabetes, hypertension, hyperlipidemia, obstructive sleep apnea, pulmonary hypertension, multinodular goiter, history of recurrent kidney stones who presented to the emergency room with acute generalized weakness and presyncope and found to have leukocytosis, evidence of a UTI with abnormal urinalysis, elevated troponin without chest pain and uncontrolled DM with ketotic non-gap hyperglycemia. She is now being admitted to medicine for sepsis 2/2 UTI, NATHAN on CKD, type 2 NSTEMI with asymptomatic troponinemia and uncontrolled IDDM with hyperglycemia. Plan: Sepsis 2/2 UTI: Tachycardia, leukocytosis with +UA and presyncope -continue empiric ceftriaxone -f/u UCx and BCx -no clinical evidence of pyelonephritis stone related pain complaints at this time -s/p 2L NS, continue fluids at 125cc/hr NATHAN on CKD: in the setting of poor PO while feeling poorly, likely prerenal also while on metformin, ARB -hold metformin, losartan, chlorthalidone, aldactone -s/p 2L NS, now on 125cc/hr -check AM BMP -If NATHAN does not improve to order urine lytes and consider renal US given history of stones and obstructive pathology in the past -strict I/Os, daily weights Uncontrolled type 2 diabetes: with ketosis in the setting of medication non- compliance -continue long acting insulin as levemir 60 BID per intended home dosing -SSI AC/HS -FSBG AC/HS -Hypoglycemic protocol. -hold home metformin and sitagliptin -Discussed the consequences of medication noncompliance including feeling poorly, frequency of UTIs and other microvascular complications -a1c is currently 10.9 -consistent carb diet Elevated troponin: technically with type 2 NSTEMI with stable non ischemic EKG with no symptoms and elevated troponin, likely 2/2 NATHAN and/or sepsis -telemetry -trend troponin -treating NATHAN and UTI per above Hypertension: -continue home coreg and verapamil. Holding ARB and chlorthalidone. History of multinodular goiter: -check TSH and free T4, both wnl History of SVT: Currently in sinus rhythm. SAMANTHA: -Continue with home CPAP Pulmonary hypertension: secondary to severe SAMANTHA -Continue with QHS CPAP Morbid obesity, Body Mass Index of 43.9, complicates her care Deep vein thrombosis (DVT) prophylaxis. Compression stockings and heparin SQ Disposition: Home pending clinical improvement VS, I&O, 24H, [facility] Vital Signs/I&O Vital Signs Date Time Temp Pulse Resp B/P (MAP) Pulse Ox O2 Delivery O2 Flow Rate FiO2 10/10/19 16:30 134/76 (95) 10/10/19 16:00 96.9 84 20 99 Room Air 10/10/19 12:00 2.0 I&O- Last 24 Hours up to 6 AM0 10/10/19 06:00 Intake Total 2615 ml Output Total 250 ml Balance 2365 ml Laboratory Data 24H LABS Laboratory Tests 2 10/09/19 19:12: Immature Granulocyte % (Auto) 0.6, Neutrophils (%) (Auto) 82.8H, Lymphocytes (%) (Auto) 10.2L, Monocytes (%) (Auto) 4.4, Eosinophils (%) (Auto) 1.4, Basophils (%) (Auto) 0.6, Neutrophils # (Auto) 13.5H, Lymphocytes # (Auto) 1.7, Monocytes # (Auto) 0.7, Eosinophils # (Auto) 0.2, Basophils # (Auto) 0.1, Nucleated Red Blood Cells % (auto) 0.0, Blood Gas Bicarbonate Standard 19.1, Venous Blood pH 7.299L, Venous Blood Partial Pressure CO2 41.5, Venous Blood Partial Pressure O2 48.3, Venous Blood Total Carbon Dioxide 21.2L, Venous Blood HCO3 19.9L, Venous Blood Oxygen Saturation 82.4H, Venous Blood Base Excess -6.2L, Estimated Mean Plasma Glucose 266H, Hemoglobin A1c 10.9, Osmolality 314H, Total Bilirubin 0.4, Direct Bilirubin 0.1, Aspartate Amino Transf (AST/SGOT) 18, Alanine Aminotr ansferase (ALT/SGPT) 20, Alkaline Phosphatase 101, Total Creatine Kinase 33, Creatine Kinase MB 3.6, Creatine Kinase MB Relative Index 10.91H, Troponin I 0.26H, Total Protein 7.4, Albumin 3.4, Albumin/Globulin Ratio 0.9L, Lipase 72L, B-Hydroxybutyrate 12.32H 10/09/19 19:37: POC Glucose (Misc Panel) 413H, POC Sodium (Misc Panel) 134L, POC Potassium (Misc Panel) 4.4, POC Chloride (Misc Panel) 102, POC Total CO2 (Misc Panel) 19.0L, POC Blood Urea Nitrogen (Misc Panel 35H, POC Ionized Calcium (Misc Panel) 6.2H, POC Creatinine (Misc Panel) 1.7H, POC Hematocrit (Misc Panel) 43.0 10/09/19 20:31: Bedside Glucose (Misc Panel) 399H 10/09/19 21:30: Bedside Glucose (Misc Panel) 393H 10/09/19 22:40: Urine Color YELLOW, Urine Appearance HAZY, Urine pH 5.0, Urine Specific [place] 1.023, Urine Protein 1+H, Urine Glucose (UA) 3+H, Urine Ketones TRACEH, Urine Blood 1+H, Urine Nitrite NEGATIVE, Urine Bilirubin NEGATIVE, Urine Urobilinogen 0.2, Urine Leukocyte Esterase 3+H, Urine WBC (Auto) 27H, Urine RBC (Auto) 7H, Urine Hyaline Casts (Auto) 0, Urine Bacteria (Auto) 1+H, Urine Squamous Epithelial Cells 1, Urine Transitional Epithelial Cells 1, Urine Mucus (Auto) SMALL, Urine Sperm (Auto) 10/09/19 23:15: Total Creatine Kinase 36, Creatine Kinase MB 3.8H, Creatine Kinase MB Relative Index 10.56H, Troponin I 0.31H 10/09/19 23:20: POC Glucose (Misc Panel) 372H, POC Sodium (Misc Panel) 136, POC Potassium (Misc Panel) 4.3, POC Chloride (Misc Panel) 106, POC Total CO2 (Misc Panel) 19.0L, POC Blood Urea Nitrogen (Misc Panel 34H, POC Ionized Calcium (Misc Panel) 6.1H, POC Creatinine (Misc Panel) 1.6H, POC Hematocrit (Misc Panel) 39.0 10/10/19 01:52: POC Glucose (Misc Panel) 325H, POC Sodium (Misc Panel) 136, POC Potassium (Misc Panel) 4.4, POC Chloride (Misc Panel) 105, POC Total CO2 (Misc Panel) 19.0L, POC Blood Urea Nitrogen (Misc Panel 35H, POC Ionized Calcium (Misc Panel) 6.0H, POC Creatinine (Misc Panel) 1.6H, POC Hematocrit (Misc Panel) 39.0 10/10/19 02:44: Anion Gap 6L, Glomerular Filtration Rate 30.7L, Calcium Level 10.8H, Thyroid Stimulating Hormone (TSH) 1.370, Free Thyroxine 1.43 10/10/19 03:16: Bedside Glucose (Misc Panel) 273H 10/10/19 06:04: Bedside Glucose (Misc Panel) 323H 10/10/19 07:44: Bedside Glucose (Misc Panel) 309H 10/10/19 08:07: Immature Granulocyte % (Auto) 0.5, Neutrophils (%) (Auto) 71.0H, Lymphocytes (%) (Auto) 20.6L, Monocytes (%) (Auto) 6.0H, Eosinophils (%) (Auto) 1.3, Basophils (%) (Auto) 0.6, Neutrophils # (Auto) 9.5H, Lymphocytes # (Auto) 2.8, Monocytes # (Auto) 0.8, Eosinophils # (Auto) 0.2, Basophils # (Auto) 0.1, Nucleated Red Blood Cells % (auto) 0.0, Anion Gap 11, Glomerular Filtration Rate 31.1L, Lactic Acid Level 3.6*H, Calcium Level 10.8H, Total Bilirubin 0.2, Aspartate Amino Transf (AST/SGOT) 20, Alanine Aminotransferase (ALT/SGPT) 23, Alkaline Phosphatase 83, Total Creatine Kinase 39, Creatine Kinase MB 3.7H, Creatine Kinase MB Relative Index 9.49H, Troponin I 0.24#H, Total Protein 6.6, Albumin 2.7#L, Albumin/Globulin Ratio 0.7L 10/10/19 08:08: Prothrombin Time 14.5H, Prothromb Time International Ratio 1.16, Activated Partial Thromboplast Time 25.3, B-Hydroxybutyrate 3.08H 10/10/19 08:28: Blood Gas Bicarbonate Standard 18.4L, Arterial Blood pH 7.333L, Arterial Blood Partial Pressure CO2 33.5L, Arterial Blood Partial Pressure O2 121.2H, Arterial Blood Total CO2 18.4L, Arterial Blood HCO3 17.4L, Arterial Blood Base Excess - 7.5L, Arterial Blood Oxygen Saturation 98.4 10/10/19 11:36: Bedside Glucose (Misc Panel) 308H 10/10/19 12:29: Lactic Acid Followup at 4 Hours 2.4*H 10/10/19 17:06: Bedside Glucose (Misc Panel) 209H CBC/BMP Laboratory Tests 10/09/19 19:12 10/10/19 02:44 10/10/19 08:07 Microbiology Microbiology 10/09/19 Urine Culture, Received Pending 10/09/19 Blood Culture, Received Pending 10/09/19 Blood Culture, Received Pending SCOTT HELLER MD Oct 10, 2019 18:51
[2019-10-10] MEDS ORDERED: cefTRIAXone SOD 1 GM in D5W MINI-BAG PLUS 50 ML IV SCH (21:00)
[2019-10-10] MEDS ORDERED: VERAPAMIL 120 MG SR TAB PO SCH (21:00)
[2019-10-11] VITALS: BP 134/76
[2019-10-11 04:00] VITALS: BP 136/78
[2019-10-11 05:50] LABS: HEMATOCRIT 34.5 % (36.0-47.0); HEMOGLOBIN 11.5 g/dl (12.0-15.5); MEAN CORPUSCULAR HEMOGLOBIN 27.9 pg (27.0-33.0); MEAN CORPUSCULAR HGB CONC 33.3 g/dl (32.0-36.5); MEAN CORPUSCULAR VOLUME 83.7 fl (80.0-96.0); PLATELET COUNT, AUTOMATED 202 10^3/uL (150-450); RED BLOOD COUNT 4.12 10^6/uL (4.00-5.40); WHITE BLOOD COUNT 13.2 10^3/uL (4.0-10.0)
[2019-10-11 06:10] LABS: CALCIUM LEVEL 10.3 MG/DL (8.5-10.1); CREATININE FOR GFR 2.01 MG/DL (0.55-1.30); GLOMERULAR FILTRATION RATE 27.2 (>51); MAGNESIUM LEVEL 1.4 MG/DL (1.8-2.4); POTASSIUM SERUM 4.1 MEQ/L (3.5-5.1)
[2019-10-11] MEDS ORDERED: MAG SULF 1GM/100ML (MAG RUN) 1 GM in IV 1 EA IV ONE (06:30)
[2019-10-11] MEDS: NS 1,000 ML IV SCH (06:48)
[2019-10-11] MEDS ORDERED: HumaLOG INSULIN (NovoLOG) PER UNIT SC SCH (07:30)
[2019-10-11 08:00] VITALS: BP 129/69
[2019-10-11] MEDS: LEVEMIR (INSULIN DETEMIR) 1 UNITS/0.01ML SC SCH (08:34)
[2019-10-11] MEDS: PANTOPRAZOLE 40MG VIAL (C9113 PER 1) IV SCH (08:35)
[2019-10-11 08:36] VITALS: BP 129/69
[2019-10-11] MEDS: CARVedilol 6.25 MG TAB PO SCH (08:36)
[2019-10-11] MEDS: CETIRIZINE (ZyrTEC) 10 MG TAB PO SCH (08:36)
[2019-10-11] MEDS: ASPIRIN 81 MG ENTERIC TAB PO SCH (08:36)
[2019-10-11] MEDS ORDERED: MAGNESIUM OXIDE 400 MG TAB (MAG-OX) PO SCH (09:00)
[2019-10-13] MEDS ORDERED: PANTOPRAZOLE 40MG VIAL (C9113 PER 1) ONE ×2 (04:52→09:58)
[2019-10-13] MEDS ORDERED: ACETAMINOPHEN TAB 650MG DOSE (2X325MG) ONE ×3 (04:52→10:18)
[2019-10-13] MEDS ORDERED: cefTRIAXone SOD 1GM VIAL (J0696 PER 250MG) ONE (04:52)
[2019-10-13] MEDS ORDERED: CARVedilol 6.25 MG TAB ONE ×2 (04:52→09:58)
[2019-10-13] MEDS ORDERED: HumaLOG INSULIN (NovoLOG) PER UNIT ONE ×2 (05:37→10:18)
[2019-10-13] MEDS ORDERED: VERAPAMIL 120 MG SR TAB ONE (05:37)
[2019-10-13] MEDS ORDERED: traMADol 50 MG TAB As Ordered ONE (07:10)
[2019-10-13] MEDS ORDERED: ASPIRIN 81 MG CHEW TABLET ONE (09:58)
[2019-10-13] MEDS ORDERED: traMADol 50 MG TAB ONE (09:58)
[2019-10-13] MEDS ORDERED: CETIRIZINE (ZyrTEC) 10 MG TAB ONE (09:58)
[2019-10-14] MEDS ORDERED: ACETAMINOPHEN TAB 650MG DOSE (2X325MG) ONE (02:16)
[2019-10-14] MEDS ORDERED: traMADol 50 MG TAB As Ordered ONE (04:02)
[2019-10-14] MEDS ORDERED: traMADol 50 MG TAB ONE (04:02)
[2019-10-14] MEDS ORDERED: ASPIRIN 81 MG ENTERIC TAB ONE (08:58)
[2019-10-14] MEDS ORDERED: LEVEMIR (INSULIN DETEMIR) 1 UNITS/0.01ML ONE (08:58)
[2019-10-14] MEDS ORDERED: HumaLOG INSULIN (NovoLOG) PER UNIT ONE ×2 (08:58→12:49)
[2019-10-14] MEDS ORDERED: HEPARIN SOD (PORCINE) 5000UNITS/ML 1ML VIAL/SYRINGE ONE (08:58)
[2019-10-14] MEDS ORDERED: CETIRIZINE (ZyrTEC) 10 MG TAB ONE (08:58)
[2019-10-14] MEDS ORDERED: PANTOPRAZOLE 40MG VIAL (C9113 PER 1) ONE (08:58)
[2019-10-14] MEDS ORDERED: CARVedilol 6.25 MG TAB ONE (08:58)
[2019-10-14] MEDS ORDERED: HEPARIN SOD (PORCINE) 5000UNITS/ML 1ML VIAL/SYRINGE As Ordered ONE (09:12)
[2019-11-21 10:50] LABS: BASO # 0.1 10^3/uL (0.0-0.2); BASO % 0.7 % (0.0-1.0); EOS # 0.6 10^3/uL (0.0-0.5); EOS % 5.1 % (0.0-3.0); HEMATOCRIT 33.8 % (36.0-47.0); HEMOGLOBIN 11.1 g/dl (12.0-15.5); LYMPH # 1.7 10^3/uL (1.5-5.0); LYMPH % 15.3 % (24.0-44.0); MEAN CORPUSCULAR HGB CONC 32.8 g/dl (32.0-36.5); MEAN CORPUSCULAR VOLUME 85.4 fl (80.0-96.0); MONO # 0.6 10^3/uL (0.0-0.8); MONO % 5.6 % (0.0-5.0); NEUTROPHILS # 7.9 10^3/uL (1.5-8.5); NEUTROPHILS % 72.5 % (36.0-66.0); PLATELET COUNT, AUTOMATED 188 10^3/uL (150-450); RED BLOOD COUNT 3.96 10^6/uL (4.00-5.40); WHITE BLOOD COUNT 10.9 10^3/uL (4.0-10.0)
[2019-11-27 11:34] LABS: CALCIUM LEVEL 9.7 MG/DL (8.5-10.1); CREATININE FOR GFR 1.92 MG/DL (0.55-1.30); GLOMERULAR FILTRATION RATE 28.7 (>51); POTASSIUM SERUM 4.3 MEQ/L (3.5-5.1)
--- NOTE | 2019-12-06 08:59 | REP ---
PORTABLE CHEST X-RAY: 10/13/2019 AT 5:54 AM HISTORY: Acute right shoulder pain. Hypotensive pallor. COMPARISON: 10/09/19 Report is delayed due to network access issues related to a malware attack on the facility. FINDINGS: Monitoring electrodes are seen overlying the chest. The lungs are symmetrically aerated and clear. The pleural angles are sharp. The heart is not enlarged. The right hemidiaphragm remains somewhat elevated. Pulmonary vasculature is not increased. There are degenerative changes in the thoracic spine. IMPRESSION: No infiltrate seen. MTDD
--- NOTE | 2019-12-12 11:29 | ECGEPIP ---
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
[2020-01-17 21:55] LABS: BASO # 0.1 10^3/uL (0.0-0.2); BASO % 0.8 % (0.0-1.0); EOS # 0.8 10^3/uL (0.0-0.5); EOS % 4.8 % (0.0-3.0); HEMATOCRIT 36.8 % (36.0-47.0); HEMOGLOBIN 11.8 g/dl (12.0-15.5); MEAN CORPUSCULAR HEMOGLOBIN 27.7 pg (27.0-33.0); MEAN CORPUSCULAR HGB CONC 32.1 g/dl (32.0-36.5); MEAN CORPUSCULAR VOLUME 86.4 fl (80.0-96.0); MONO # 0.9 10^3/uL (0.0-0.8); MONO % 6.1 % (0.0-5.0); NEUTROPHILS # 11.6 10^3/uL (1.5-8.5); NEUTROPHILS % 74.6 % (36.0-66.0); PLATELET COUNT, AUTOMATED 238 10^3/uL (150-450); RED BLOOD COUNT 4.26 10^6/uL (4.00-5.40); WHITE BLOOD COUNT 15.5 10^3/uL (4.0-10.0)
== END 2019-10-14 11:00 | disposition home or self-care (01) | DRG 720 ==
LOC: EDBD 18:27 → M ED 18:27 → M ED INP 10-10 00:49 → ENRESERV 10-10 01:26 → M MSPAV 10-10 02:59 → M PCU 10-10 07:52
PROVIDERS: ADMIT Internal Medicine; ATTEND Internal Medicine
DX: A41.9 Sepsis, unspecified organism (principal); I21.A1 Myocardial infarction type 2; N17.9 Acute kidney failure, unspecified; I27.20 Pulmonary hypertension, unspecified; Z68.41 Body mass index [BMI] 40.0-44.9, adult; E11.65 Type 2 diabetes mellitus with hyperglycemia; E66.01 Morbid (severe) obesity due to excess calories; N39.0 Urinary tract infection, site not specified; N18.9 Chronic kidney disease, unspecified; Z91.19 Patient's noncompliance with other medical treatment and regimen; G47.33 Obstructive sleep apnea (adult) (pediatric); I12.9 Hypertensive chronic kidney disease with stage 1 through stage 4 chronic kidney disease, or unspecified chronic kidney disease

== ENCOUNTER 2021-02-03 18:53 | Inpatient (IN) | payer BC ==
[~2021-02-03] VITALS: Ht 170.2 cm; Wt 117.3 kg
[~2021-02-03 18:53] MED LIST changes: +CETI-24 PO; +CHLO25TA PO; +LOSA50TA28 PO; -LOSA50TA88 PO; -VERA180T3 PO; +VERA180T42 PO; +VERA240T65 PO; -VERA24TASA PO
[2021-02-03] MEDS ORDERED: MORPHINE 4 MG/ML 1ML VIAL/SYRINGE (J2270) IV ONE (20:30)
[2021-02-03] MEDS ORDERED: ONDANSETRON 4MG/2ML VIAL IV ONE (20:30)
[2021-02-03] MEDS ORDERED: NS 1,000 ML IV ONE (20:30)
[2021-02-03 21:18] LABS: BASO # 0.1 10^3/uL (0.0-0.2); BASO % 0.5 % (0.0-1.0); EOS # 0.1 10^3/uL (0.0-0.5); EOS % 0.3 % (0.0-3.0); HEMOGLOBIN 14.7 g/dl (12.0-15.5); LYMPH # 1.8 10^3/uL (1.5-5.0); LYMPH % 9.8 % (24.0-44.0); MEAN CORPUSCULAR HEMOGLOBIN 27.9 pg (27.0-33.0); MEAN CORPUSCULAR HGB CONC 34.2 g/dl (32.0-36.5); MEAN CORPUSCULAR VOLUME 81.6 fl (80.0-96.0); MONO # 1.1 10^3/uL (0.0-0.8); MONO % 6.3 % (2.0-8.0); NEUTROPHILS # 14.8 10^3/uL (1.5-8.5); NEUTROPHILS % 82.2 % (36.0-66.0); PLATELET COUNT, AUTOMATED 311 10^3/uL (150-450); RED BLOOD COUNT 5.27 10^6/uL (4.00-5.40)
[2021-02-03 21:54] LABS: ALBUMIN 3.1 GM/DL (3.2-5.2); BILIRUBIN,DIRECT 0.2 MG/DL (0.0-0.2); BILIRUBIN,TOTAL 0.7 MG/DL (0.2-1.0); CALCIUM LEVEL 9.3 MG/DL (8.5-10.1); CREATININE FOR GFR 2.51 MG/DL (0.55-1.30); POTASSIUM SERUM 4.2 MEQ/L (3.5-5.1); TOTAL PROTEIN 7.4 GM/DL (6.4-8.2)
[2021-02-03] MEDS ORDERED: HumuLIN R (REGULAR) INSULIN (NovoLIN R) **100U/ML** PER UNIT IV ONE (22:10)
[2021-02-03 23:12] LABS: RSV AMPLIFICATION NEGATIVE (NEGATIVE)
[2021-02-04] VITALS (10 sets, daily range): BP systolic 127–171; BP diastolic 48–88; O2SAT 87–96
[2021-02-04] MEDS ORDERED: NS 1,000 ML IV SCH ×2 (00:35→21:00)
[2021-02-04] MEDS ORDERED: MORPHINE 4 MG/ML 1ML VIAL/SYRINGE (J2270) IV PRN (00:35)
[2021-02-04] MEDS ORDERED: GLUCOSE 4GM CHEW TABLET PO PRN (01:10)
[2021-02-04] MEDS ORDERED: D5W/0.9% SODIUM CHLORIDE 1,000 ML IV SCH (01:10)
[2021-02-04] MEDS ORDERED: GLUCAGON INJ 1MG VIAL SC PRN (01:10)
[2021-02-04] MEDS ORDERED: ONDANSETRON 4MG/2ML VIAL IV PRN ×2 (01:10→21:00)
[2021-02-04] MEDS ORDERED: DEXTROSE 50% 50 ML SYRINGE IV PRN (01:10)
[2021-02-04] MEDS: HumaLOG INSULIN (NovoLOG) PER UNIT SC SCH ×5 (01:38→21:04)
[2021-02-04] MEDS ORDERED: HOME MED LIST COMPLETE! XX SCH (01:45)
[2021-02-04] MEDS: NS 1,000 ML IV SCH ×4 (04:10→21:05)
[2021-02-04] MEDS: cefTRIAXone SOD 1 GM in D5W MINI-BAG PLUS 50 ML IV SCH (04:10)
[2021-02-04] MEDS: MORPHINE 2 MG/ML 1ML VIAL (J2270) IV PRN ×3 (04:24→14:39)
[2021-02-04] MEDS: HEPARIN SOD (PORCINE) 5000UNITS/ML 1ML VIAL/SYRINGE SC SCH ×3 (06:11→21:03)
[2021-02-04 07:01] LABS: BASO # 0.1 10^3/uL (0.0-0.2); BASO % 0.4 % (0.0-1.0); EOS # 0.1 10^3/uL (0.0-0.5); EOS % 0.8 % (0.0-3.0); HEMATOCRIT 37.6 % (36.0-47.0); HEMOGLOBIN 12.8 g/dl (12.0-15.5); LYMPH # 2.2 10^3/uL (1.5-5.0); LYMPH % 16.4 % (24.0-44.0); MEAN CORPUSCULAR HEMOGLOBIN 28.1 pg (27.0-33.0); MEAN CORPUSCULAR VOLUME 82.6 fl (80.0-96.0); MONO % 7.4 % (2.0-8.0); NEUTROPHILS # 10.2 10^3/uL (1.5-8.5); NEUTROPHILS % 74.3 % (36.0-66.0); PLATELET COUNT, AUTOMATED 235 10^3/uL (150-450); RED BLOOD COUNT 4.55 10^6/uL (4.00-5.40); WHITE BLOOD COUNT 13.7 10^3/uL (4.0-10.0)
[2021-02-04 07:17] LABS: CALCIUM LEVEL 8.4 MG/DL (8.5-10.1); CREATININE FOR GFR 2.36 MG/DL (0.55-1.30); GLOMERULAR FILTRATION RATE 22.5 (>51); POTASSIUM SERUM 3.8 MEQ/L (3.5-5.1)
[2021-02-04 07:20] LABS: HEMOGLOBIN A1c 12.1 %
[2021-02-04] MEDS ORDERED: LEVEMIR (INSULIN DETEMIR) 1 UNITS/0.01ML SC SCH (09:00)
[2021-02-04 09:29] LABS: CHOLESTEROL RISK RATIO 3.5 (<5)
[2021-02-04] MEDS ORDERED: MIDAZOLAM INJ 2MG/2ML VIAL (J2250 PER 1MG) As Ordered ONE (18:30)
[2021-02-04] MEDS ORDERED: propofoL 200 MG/20 ML VIAL As Ordered ONE (18:30)
[2021-02-04] MEDS ORDERED: fentaNYL 100 MCG/2 ML INJECTION As Ordered ONE (18:30)
[2021-02-04] MEDS ORDERED: **hydrALAZINE** 10 MG TAB PO PRN (19:55)
[2021-02-04] MEDS ORDERED: fentaNYL 100 MCG/2 ML INJECTION IV PRN (21:00)
[2021-02-04] MEDS ORDERED: oxyCODONE 5MG TAB PO PRN (21:00)
[2021-02-04] MEDS: ACETAMINOPHEN TAB 650MG DOSE (2X325MG) PO PRN (21:04)
[2021-02-05] VITALS (13 sets, daily range): BP systolic 122–190; BP diastolic 48–96; O2SAT 82–97
[2021-02-05] MEDS: cefTRIAXone SOD 1 GM in D5W MINI-BAG PLUS 50 ML IV SCH (02:47)
[2021-02-05] MEDS: NS 1,000 ML IV SCH ×2 (03:52→17:48)
[2021-02-05] MEDS: HEPARIN SOD (PORCINE) 5000UNITS/ML 1ML VIAL/SYRINGE SC SCH ×3 (05:23→21:48)
[2021-02-05 08:41] LABS: BASO # 0.1 10^3/uL (0.0-0.2); BASO % 0.8 % (0.0-1.0); EOS # 0.2 10^3/uL (0.0-0.5); EOS % 2.2 % (0.0-3.0); HEMATOCRIT 36.3 % (36.0-47.0); HEMOGLOBIN 11.6 g/dl (12.0-15.5); LYMPH # 1.7 10^3/uL (1.5-5.0); LYMPH % 19.5 % (24.0-44.0); MEAN CORPUSCULAR VOLUME 87.7 fl (80.0-96.0); MONO # 0.5 10^3/uL (0.0-0.8); MONO % 5.3 % (2.0-8.0); NEUTROPHILS # 6.4 10^3/uL (1.5-8.5); NEUTROPHILS % 71.5 % (36.0-66.0); PLATELET COUNT, AUTOMATED 218 10^3/uL (150-450); RED BLOOD COUNT 4.14 10^6/uL (4.00-5.40); WHITE BLOOD COUNT 8.9 10^3/uL (4.0-10.0)
[2021-02-05] MEDS ORDERED: LEVEMIR (INSULIN DETEMIR) 1 UNITS/0.01ML SC SCH ×2 (09:00→21:00)
[2021-02-05 09:20] LABS: CREATININE FOR GFR 1.88 MG/DL (0.55-1.30); GLOMERULAR FILTRATION RATE 29.3 (>51); POTASSIUM SERUM 4.6 MEQ/L (3.5-5.1)
[2021-02-05] MEDS: HumaLOG INSULIN (NovoLOG) PER UNIT SC SCH ×4 (09:21→21:00)
[2021-02-05] MEDS: ACETAMINOPHEN TAB 650MG DOSE (2X325MG) PO PRN (14:22)
[2021-02-05] MEDS: PHENAZOPYRIDINE 100 MG TAB PO SCH (21:49)
[2021-02-05] MEDS: oxyBUTYnin 5 MG TAB PO SCH (21:49)
[2021-02-06 00:58] VITALS: BP 187/80
[2021-02-06] MEDS: cefTRIAXone SOD 1 GM in D5W MINI-BAG PLUS 50 ML IV SCH (01:52)
[2021-02-06] MEDS: NS 1,000 ML IV SCH (03:23)
[2021-02-06 05:49] VITALS: BP 172/90
[2021-02-06] MEDS: HEPARIN SOD (PORCINE) 5000UNITS/ML 1ML VIAL/SYRINGE SC SCH (06:40)
[2021-02-06] MEDS: HumaLOG INSULIN (NovoLOG) PER UNIT SC SCH ×2 (08:35→12:00)
[2021-02-06] MEDS: MORPHINE 2 MG/ML 1ML VIAL (J2270) IV PRN (08:37)
[2021-02-06] MEDS: oxyBUTYnin 5 MG TAB PO SCH (08:37)
[2021-02-06] MEDS: PHENAZOPYRIDINE 100 MG TAB PO SCH (08:37)
[2021-02-06] MEDS ORDERED: LANTINJ4 SC ×2 (08:39)
[2021-02-06] MEDS ORDERED: AMLO1TAB24 PO (08:39)
[2021-02-06] MEDS ORDERED: PHEN1TAB73 PO (08:39)
[2021-02-06] MEDS ORDERED: OXYB5TAB10 PO (08:39)
[2021-02-06] MEDS ORDERED: ACET1TAB55 PO (08:39)
[2021-02-06 08:54] LABS: BASO # 0.1 10^3/uL (0.0-0.2); BASO % 0.8 % (0.0-1.0); EOS # 0.3 10^3/uL (0.0-0.5); HEMOGLOBIN 11.9 g/dl (12.0-15.5); LYMPH # 1.8 10^3/uL (1.5-5.0); LYMPH % 25.4 % (24.0-44.0); MEAN CORPUSCULAR HEMOGLOBIN 28.1 pg (27.0-33.0); MEAN CORPUSCULAR HGB CONC 33.1 g/dl (32.0-36.5); MEAN CORPUSCULAR VOLUME 84.9 fl (80.0-96.0); MONO # 0.4 10^3/uL (0.0-0.8); MONO % 5.8 % (2.0-8.0); NEUTROPHILS # 4.6 10^3/uL (1.5-8.5); NEUTROPHILS % 63.3 % (36.0-66.0); PLATELET COUNT, AUTOMATED 240 10^3/uL (150-450); RED BLOOD COUNT 4.24 10^6/uL (4.00-5.40); WHITE BLOOD COUNT 7.2 10^3/uL (4.0-10.0)
[2021-02-06] MEDS ORDERED: LEVEMIR (INSULIN DETEMIR) 1 UNITS/0.01ML SC SCH ×2 (09:00→21:00)
[2021-02-06] MEDS ORDERED: amLODIPine 5 MG TAB PO SCH (09:00)
[2021-02-06 09:19] LABS: CALCIUM LEVEL 8.6 MG/DL (8.5-10.1); CREATININE FOR GFR 1.57 MG/DL (0.55-1.30); POTASSIUM SERUM 4.2 MEQ/L (3.5-5.1)
[2021-02-06 09:58] VITALS: BP 180/90
[2021-02-06] MEDS ORDERED: FUROSEMIDE 20MG/2ML VIAL (J1940) IV ONE (10:10)
[2021-02-06] MEDS ORDERED: LASI20TA3 PO (10:14)
[2021-03-16] MEDS ORDERED: LANTINJ4 SC (08:00)
[2021-03-16] MEDS ORDERED: CARV6.25 PO (08:00)
[2021-03-16] MEDS ORDERED: JANU100T PO (08:00)
[2021-03-30] MEDS ORDERED: OXYB5TAB10 PO (07:42)
[2021-03-30] MEDS ORDERED: PYRI1TAB5 PO (07:42)
[2021-03-30] MEDS ORDERED: MACR100C43 PO (07:42)
[2021-03-30] MEDS ORDERED: HYDR-3713 PO (07:42)
== END 2021-02-06 12:54 | disposition home or self-care (01) | DRG 465 ==
LOC: M ED 18:53 → M ED INP 02-04 01:07 → ENRESERV 02-04 01:39 → M MSPAV 02-04 03:44
PROVIDERS: ADMIT Internal Medicine; ATTEND Internal Medicine
PROC: 0T778DZ Dilation of Left Ureter with Intraluminal Device, Via Natural or Artificial Opening Endoscopic (ICD-10-PCS; principal; 2021-02-04 18:00)
DX: N13.2 Hydronephrosis with renal and ureteral calculous obstruction (principal); N17.9 Acute kidney failure, unspecified; E11.22 Type 2 diabetes mellitus with diabetic chronic kidney disease; E11.65 Type 2 diabetes mellitus with hyperglycemia; Z68.41 Body mass index [BMI] 40.0-44.9, adult; N18.9 Chronic kidney disease, unspecified; Z91.14 Patient's other noncompliance with medication regimen; I12.9 Hypertensive chronic kidney disease with stage 1 through stage 4 chronic kidney disease, or unspecified chronic kidney disease; E66.9 Obesity, unspecified; Z88.8 Allergy status to other drugs, medicaments and biological substances; Z91.030 Bee allergy status; Z20.822 Contact with and (suspected) exposure to COVID-19

== ENCOUNTER → 2021-03-11 | Outpatient (REF) | payer BC ==
[~2021-03-11] MED LIST changes: +ACET1TAB55 PO; +AMLO1TAB24 PO; +CARV6.25 PO; +LANTINJ4 SC; +LASI20TA3 PO; -LOSA50TA28 PO; +LOSA50TA88 PO; +OXYB5TAB10 PO; +PHEN1TAB73 PO
[2021-03-11 17:30] LABS: APPEARANCE, URINE CLOUDY (CLEAR); BACTERIA, URINE AUTO NEGATIVE (NEGATIVE); BILIRUBIN, URINE AUTO NEGATIVE (NEGATIVE); BLOOD, URINE BLOOD 3+ (NEGATIVE); COLOR, URINE YELLOW (YELLOW); GLUCOSE, URINE (UA) AUTO 3+ mg/dL (NEGATIVE); KETONE, URINE AUTO NEGATIVE (NEGATIVE); LEUKOCYTE ESTERASE, URINE AUTO 3+ (NEGATIVE); NITRITE, URINE AUTO NEGATIVE (NEGATIVE); PROTEIN, URINE AUTO 2+ mg/dL (NEGATIVE); RBC, URINE AUTO 61 /HPF (0-3); SPECIFIC GRAVITY URINE AUTO 1.011 (1.002-1.035); SQUAMOUS EPITHELIAL CELL UR AU 3 /HPF (0-6); UROBILINOGEN, URINE AUTO 0.2 mg/dL (0.0-2.0); WBC, URINE AUTO TNTC /HPF (0-3)
[2021-03-11 18:05] LABS: HEMATOCRIT 41.1 % (36.0-47.0); HEMOGLOBIN 13.3 g/dl (12.0-15.5); MEAN CORPUSCULAR HEMOGLOBIN 27.4 pg (27.0-33.0); MEAN CORPUSCULAR HGB CONC 32.4 g/dl (32.0-36.5); MEAN CORPUSCULAR VOLUME 84.6 fl (80.0-96.0); PLATELET COUNT, AUTOMATED 316 10^3/uL (150-450); RED BLOOD COUNT 4.86 10^6/uL (4.00-5.40)
== END ==
LOC: M SFHCADAM 11:52
PROVIDERS: ATTEND Physician Assistant
DX: N20.0 Calculus of kidney (principal); R30.0 Dysuria

== ENCOUNTER → 2021-03-23 | Outpatient (REF) | payer BC ==
[2021-03-23 13:12] LABS: APPEARANCE, URINE TURBID (CLEAR); BACTERIA, URINE AUTO NEGATIVE (NEGATIVE); BILIRUBIN, URINE AUTO NEGATIVE (NEGATIVE); BLOOD, URINE BLOOD 3+ (NEGATIVE); COLOR, URINE YELLOW (YELLOW); GLUCOSE, URINE (UA) AUTO 3+ mg/dL (NEGATIVE); KETONE, URINE AUTO NEGATIVE (NEGATIVE); LEUKOCYTE ESTERASE, URINE AUTO 3+ (NEGATIVE); NITRITE, URINE AUTO NEGATIVE (NEGATIVE); PROTEIN, URINE AUTO 2+ mg/dL (NEGATIVE); RBC, URINE AUTO TNTC /HPF (0-3); SPECIFIC GRAVITY URINE AUTO 1.012 (1.002-1.035); SQUAMOUS EPITHELIAL CELL UR AU 3 /HPF (0-6); UROBILINOGEN, URINE AUTO 0.2 mg/dL (0.0-2.0); WBC, URINE AUTO TNTC /HPF (0-3)
== END ==
LOC: M SFHCADAM 12:33
PROVIDERS: ATTEND Physician Assistant
DX: Z01.818 Encounter for other preprocedural examination (principal)

== ENCOUNTER → 2021-03-25 | Outpatient (CLI) | payer BC | LOC: M LABSMTC 09:02 | PROVIDERS: ATTEND Anesthesiology | DX: Z01.812 Encounter for preprocedural laboratory examination (principal); Z11.52 Encounter for screening for COVID-19 ==